=== PATIENT | female | born 1955 | race Caucasian/White ===

== ENCOUNTER 2017-05-27 21:54 | Inpatient (IN) | payer MEDICAID ==
[~2017-05-27] VITALS: Ht 167.6 cm; Wt 63.0 kg
[2017-05-27 22:06] VITALS: BP 109/76
--- NOTE | 2017-05-27 22:06 | NUR ---
PT JAVIER BARTLETT. TAKEN TO BED 11
--- NOTE | 2017-05-27 22:06 | NUR ---
Pt came from care facility for fever and vomiting x1 day. Pt arrived via EMS. Pt has developmental and physical defficit. Pt non-verbal, unable to follow command, calm. Pt has G-tube, and hand contractures. Pt is well kempt at facility. Pt incontinant. VS stable, HOB elevated, ER MD aware, continue to monitor.
[2017-05-27 23:27] LABS: MEAN CORPUSCULAR VOLUME 87 fL (80-94)
[2017-05-27 23:28] LABS: BASOPHILS # (AUTO) 0.2 K/uL (0.00-0.22); BASOPHILS % (AUTO) 1.3 % (0.0-2.0); EOSINOPHILS # (AUTO) 0.1 K/uL (0-0.4); EOSINOPHILS % (AUTO) 0.5 % (0.0-4.0); HEMATOCRIT 37.5 % (36-48); LYMPHOCYTES # (AUTO) 1.9 K/uL (2.5-16.5); LYMPHOCYTES % (AUTO) 15.2 % (20.5-51.1); MEAN CORPUSCULAR HEMOGLOBIN 28 pg (27-31); MEAN CORPUSCULAR HGB CONC 32 g/dL (33-37); NEUTROPHILS # (AUTO) 9.4 K/uL (1.8-7.7); PLATELET COUNT (AUTO) 439 K/uL (140-450); RED BLOOD CELL COUNT(AUTO) 4.28 MIL/uL (4.20-5.40); RED CELL DISTRIBUTION WIDTH 14.1 % (11.6-13.7); WHITE BLOOD COUNT (AUTO) 12.6 K/uL (4.8-10.8)
[2017-05-27 23:41] LABS: ALBUMIN 2.6 g/dL (3.4-5.0); ANION GAP 10.1 (8-16); TOTAL BILIRUBIN 0.3 mg/dL (0.0-1.0)
[2017-05-27 23:49] LABS: CARBON DIOXIDE 41.1 mmol/L (21-32); POTASSIUM 2.2 mmol/L (3.5-5.1)
[2017-05-27] MEDS ORDERED: POTASSIUM CHLORIDE 10 MEQ TABER PO ONE (23:50)
[2017-05-27] MEDS ORDERED: NACL 0.9% 2,000 ML IV ONE (23:50)
--- NOTE | 2017-05-27 23:50 | NUR ---
Spoke to lab, Critical values given. K 2.2, Bicarb 41.1, and Lactic 2.3. Dr Sewell informed. Continue to monitor.
[2017-05-28] MEDS ORDERED: POTASSIUM CHLORIDE 20% 40 MEQ/15 ML UDC GT ONE
--- NOTE | 2017-05-28 01:44 | NUR ---
Straight catheter performed. Unable to insert indwelling catheter at this time. Urine collected and sent to lab.
--- NOTE | 2017-05-28 01:50 | NUR ---
Pt cleaned and placed in new diaper with chucks, hospital gown, and blanket. Personal belongings placed in bag at bedside. Skin assessed. 7x7cm rash above left hip. Duoderm found over coccyx. Skin under duoderm clear, blanchable, and in tact. Duoderm is preventative.
[2017-05-28 01:56] LABS: APPEARANCE,URINE CLOUDY (CLEAR); BILIRUBIN,URINE NEGATIVE (NEGATIVE); BLOOD, URINE 2+ (NEGATIVE); COLOR,URINE YELLOW (YELLOW); LEUKOCYTE ESTERASE ,URINE TRACE (NEGATIVE); NITRITE, URINE NEGATIVE (NEGATIVE); PH,URINE 8.5 (5.0-9.0); UGLUCOSE NEGATIVE (NEGATIVE)
[2017-05-28 02:28] LABS: RBC,URINE 11-20 (MOD) /HPF (0-5); WBC,URINE 20-60 /HPF (0-5)
[2017-05-28] MEDS ORDERED: LEVOFLOXACIN 500 MG/D5W PREMIX 100 ML IV ONE (02:30)
[2017-05-28] MEDS ORDERED: HYDROcodone/APAP 7.5/325 MG 1 TAB GT PRN (02:50)
[2017-05-28] MEDS ORDERED: ONDANSETRON 4 MG/2 ML VIAL IVP PRN (02:50)
[2017-05-28] MEDS ORDERED: ACETAMINOPHEN 325 MG SUPP RC PRN (02:50)
[2017-05-28 03:15] VITALS: BP 146/84
--- NOTE | 2017-05-28 03:17 | NUR ---
Pt left ED to floor, room 0317. Pt escorted via gurjoaquin by Chavez PANG and Wily CANALES.
[2017-05-28] MEDS ORDERED: MONT10TA35 PEG (03:22)
[2017-05-28] MEDS ORDERED: CHLO1TAB42 PEG (03:22)
[2017-05-28] MEDS ORDERED: ROB1 PEG (03:22)
[2017-05-28] MEDS ORDERED: SIME20SU1 PO (03:22)
[2017-05-28] MEDS ORDERED: ZONI100C5 PEG (03:22)
[2017-05-28] MEDS ORDERED: FERR75LI22 PEG (03:22)
[2017-05-28] MEDS ORDERED: PUL.5N INH (03:22)
[2017-05-28] MEDS ORDERED: OMEP20TC PEG (03:22)
[2017-05-28] MEDS ORDERED: LAM200 PEG (03:22)
[2017-05-28] MEDS ORDERED: MIRABULK PEG (03:22)
[2017-05-28] MEDS ORDERED: MULT15LI1 GT (03:22)
[2017-05-28] MEDS ORDERED: FLONAS NS (03:22)
[2017-05-28] MEDS ORDERED: LORA10TA19 PEG (03:22)
[2017-05-28] MEDS ORDERED: [UNRECOGNIZED DRUG - CODE] PEG (03:22)
[2017-05-28] MEDS ORDERED: PRON INH (03:22)
[2017-05-28] MEDS ORDERED: AMLO10TA PO (03:22)
[2017-05-28] MEDS ORDERED: ASCO500T45 PEG (03:22)
[2017-05-28] MEDS ORDERED: METO5SOL19 GT (03:22)
[2017-05-28] MEDS ORDERED: CARB100S PO (03:22)
[2017-05-28] MEDS ORDERED: SYN.05 PO (03:22)
--- NOTE | 2017-05-28 03:30 | NUR ---
Care transfered to Consuelo PANG room 107B. Pt vss.
[2017-05-28 03:45] LABS: CHOL/HDL RATIO 2.9 (1-4.5); FREE T4 (FREE THYROXINE) 0.82 ng/dL (0.76-1.46); MAGNESIUM 2.6 mg/dL (1.8-2.4); PHOSPHORUS 4.4 mg/dL (2.5-4.9); THYROID STIMULATING HORMONE 2.71 uIU/mL (0.34-3.74)
--- NOTE | 2017-05-28 03:45 | NUR ---
RECEIVED PATIENT FROM WHIPPER BEATER. PATIENT NON VERBAL. FLACC 0. IV SITE PATENT AND INTACT. PATIENT IS QUADRIPLEGIC AND UNABLE TO AMBULATE. G TUBE PATENT AND INTACT. NO SIGNS OR SYMPTOMS OF ACUTE DISTRESS NOTED. SAFETY MEASURES ENSURED. CALL LIGHT WITHIN REACH. WILL CONTINUE TO MONITOR.
--- NOTE | 2017-05-28 04:10 | NUR ---
IN TO SEE PATIENT.
[2017-05-28] MEDS: NACL 0.9% 1,000 ML IV SCH ×2 (04:43→12:50)
[2017-05-28] MEDS ORDERED: LEVOTHYROXINE 0.05 MG TAB PO SCH (06:30)
--- NOTE | 2017-05-28 06:35 | NUR ---
GASTRIC RESIDUAL 90ML DARK BROWN WITH POSSIBLE BLOOD. AWARE. GASTRIC OCCULT BLOOD COLLECTED FOR TESTING.
[2017-05-28 07:13] LABS: BASOPHILS # (AUTO) 0.1 K/uL (0.00-0.22); BASOPHILS % (AUTO) 0.8 % (0.0-2.0); EOSINOPHILS # (AUTO) 0.1 K/uL (0-0.4); EOSINOPHILS % (AUTO) 0.7 % (0.0-4.0); HEMATOCRIT 30.4 % (36-48); HEMOGLOBIN 10.3 g/dL (12.0-16.0); LYMPHOCYTES # (AUTO) 2.6 K/uL (2.5-16.5); LYMPHOCYTES % (AUTO) 23.4 % (20.5-51.1); MEAN CORPUSCULAR HEMOGLOBIN 31 pg (27-31); MEAN CORPUSCULAR HGB CONC 34 g/dL (33-37); MEAN CORPUSCULAR VOLUME 90 fL (80-94); MONOCYTES # (AUTO) 0.8 K/uL (0.8-1.0); MONOCYTES % (AUTO) 7.4 % (1.7-9.3); NEUTROPHILS # (AUTO) 7.6 K/uL (1.8-7.7); NEUTROPHILS % (AUTO) 67.7 % (42.2-75.2); PLATELET COUNT (AUTO) 339 K/uL (140-450); RED BLOOD CELL COUNT(AUTO) 3.37 MIL/uL (4.20-5.40); RED CELL DISTRIBUTION WIDTH 14.1 % (11.6-13.7); WHITE BLOOD COUNT (AUTO) 11.1 K/uL (4.8-10.8)
--- NOTE | 2017-05-28 07:27 | NUR ---
ENDORSED PLAN OF CARE TO AM RN. PATIENT IN STABLE CONDITION.
--- NOTE | 2017-05-28 07:30 | NUR ---
RECEIVED PATIENT REPORT AT BEDSIDE FROM NIGHT NURSE, PATIENT IS AWAKE, NONVERBAL, AND HAS INTELLECTUAL DISABILITY. SHE SHOWS NO S/S OF ACUTE DISTRESS ON ROOM AIR. FLACC-0. IV NOTED ON THE LEFT HAND WITH IVF'S INFUSING WELL. ON TELE MONITOR. PATIENT HAS DERMATITIS AROUND HER MOUTH, LOWER BACK, LEFT ELBOW, UNDERNEATH LEFT BREAST AND ERYTHEMA ON THE VAGINA. GT NOTED WITH NO TF. GT WAS CHECKED FOR POSITIVE PLACEMENT, ASPIRATED WITH NO RESIDUAL NOTED. PATIENT IS INCONTINENT OF URINE AND BOWEL. DISCUSSED POC WITH PATIENT HOWEVER SHE IS UNABLE TO VERBALIZE UNDERSTANDING OF CARE. SAFETY AND FALL PRECAUTIONS IN PLACE. BED IN LOW POSITION WITH CALL LIGHT WITHIN REACH.
[2017-05-28 07:38] LABS: MAGNESIUM 2.4 mg/dL (1.8-2.4); PHOSPHORUS 2.1 mg/dL (2.5-4.9)
[2017-05-28 07:53] LABS: ANION GAP 12.3 (8-16); CARBON DIOXIDE 36.3 mmol/L (21-32)
[2017-05-28 08:00] VITALS: BP_SYST 87; BP_SYST 99; BP_DIAS 42; BP_DIAS 60
[2017-05-28 08:41] LABS: CREATININE 0.8 mg/dL (0.6-1.3)
[2017-05-28 08:42] LABS: POTASSIUM 2.6 mmol/L (3.5-5.1)
--- NOTE | 2017-05-28 08:50 | NUR ---
CALLED MAGI RN [phone] IN REGARDS TO RECEIVING CONSENT FOR PATIENT TO GET CT WITH CONTRAST, MAGI STATED TO CALL [facility] AND SPEAK WITH ROSALIE BROOKS [phone].
--- NOTE | 2017-05-28 08:52 | NUR ---
CALLED ROSALIE BROOKS AT [phone] HOWEVER ANSWERING MACHINE STATED SHE WILL BE IN [place] UNTIL MAY 282017 AND WILL BE BACK MAY 29, 2017. GENERAL LINE WAS CALLED [phone] HOWEVER NOT OPEN AT THIS TIME. WILL ATTEMPT AT A LATER TIME.
[2017-05-28] MEDS: amLODIPine 5 MG TAB GT SCH (09:00)
--- NOTE | 2017-05-28 09:10 | NUR ---
PATIENT HAS BEEN SCREENED AND CATEGORIZED MODERATE NUTRITION RISK. PATIENT WILL BE SEEN WITHIN 3-5 DAYS OF ADMISSION. 05/30/17-06/01/[address]
[2017-05-28] MEDS: DOCUSATE 100 MG/10 ML UDC GT SCH ×2 (09:20→21:08)
[2017-05-28] MEDS: FERROUS SULFATE 300 MG/5 ML UDC GT SCH ×2 (09:20→21:08)
[2017-05-28] MEDS: METOCLOPRAMIDE 10 MG/10 ML SYRP UDC GT SCH ×4 (09:22→21:07)
[2017-05-28] MEDS: FAMOTIDINE 20 MG/2 ML VIAL IVP SCH ×2 (09:22→21:11)
[2017-05-28] MEDS: LORATADINE 10 MG TAB PEG SCH (09:23)
[2017-05-28] MEDS: FLUTICASONE NASAL 50 MCG/ACTUATION 16 GM BTL NS SCH ×2 (09:23→21:11)
[2017-05-28] MEDS: LACTOBACILLUS RHAMNOSUS GG 1 EACH CAP PO SCH (09:24)
[2017-05-28] MEDS: SIMETHICONE 40 MG/0.6 ML PO SCH ×2 (09:24→21:00)
[2017-05-28] MEDS: POLYETHYLENE GLYCOL 17 GM/PKT PEG SCH (09:25)
[2017-05-28] MEDS: GLYCOPYRROLATE 1 MG TAB PEG SCH ×2 (09:26→21:08)
[2017-05-28] MEDS: ASCORBIC ACID 500 MG TAB PEG SCH (09:26)
[2017-05-28] MEDS: CALCIUM CARBONATE 500 MG TAB.CHEW PEG SCH ×3 (09:26→17:55)
[2017-05-28] MEDS: HYDRAGUARD CREAM TP SCH (09:27)
[2017-05-28] MEDS: Z-GUARD PASTE TP SCH (09:30)
--- NOTE | 2017-05-28 09:50 | NUR ---
PATIENT HOB IS ELEVATED. GT WAS ASPIRATED AND NO RESIDUAL NOTED, FLUSHED WITH 20 CC OF STERILE WATER, PATIENT WAS GIVEN SCHEDULED MEDICATIONS, MEDICATIONS WERE CRUSHED INDIVIDUALLY AND GIVEN WITH 10 CC OF STERILE WATER, ALL MEDICATIONS EXCEPT FOR AMLODIPINE 10 MG PO WAS NOT GIVEN D/T DECREASED BP. APPLIED HYDRAGAURD AND ZGAURD ORDERED. PATIENT IS SITTING UPRIGHT AT 45 DEGREES. PATIENT'S NEEDS MET AT THIS TIME. BED IN LOW POSITION, BED ALARM ACTIVATED, AND CALL LIGHT WITHIN REACH.
--- NOTE | 2017-05-28 10:22 | NUR ---
SPOKE WITH AG FLORES AT [phone] IN REGARDS TO CONSENT FORM FOR CT WITH CONTRAST OF THE ABD AND PELVIS. SHE STATED, "I WILL LET THE INSURANCE INSTRUCTOR KNOW, YOU WILL HERE A CALL BACK LATER TODAY BY BARBARA OR FROM CLINICAL SERVICES. THEY WILL NOTIFY WHEN THE CONSENT FROM HAS BEEN SENT."
[2017-05-28] MEDS ORDERED: POTASSIUM CHLORIDE 40 MEQ, LIDOCAINE 1% 25 MG in NACL 0.9% 250 ML IV SCH (10:30)
--- NOTE | 2017-05-28 11:00 | NUR ---
PER RADIOLOGY ONLY ABLE TO DO CT WITH IV CONTRAST WITH 20 G IV. ATTEMPTED TWICE UNSUCCESSFULLY, WILL ASK ADDY PANG.
--- NOTE | 2017-05-28 11:30 | NUR ---
ADDY PANG SUCCESSFULLY ATTEMPTED IV ON THE RIGHT UPPER ARM 20 G SL FOR PROCEDURE. JORGE NOTIFIED.
--- NOTE | 2017-05-28 12:00 | NUR ---
PER VONDA POLANCO, PATIENT DOES NOT NEED CONSENT FORM SIGNED DT TO PATIENT HAVING NO CONSERVATOR OR GUARDIAN, DR TINAJERO IS AWARE. DR TINAJERO SIGNED CONSENT FORM, JORGE FROM RADIOLOGY IS AWARE.
--- NOTE | 2017-05-28 12:35 | NUR ---
PATIENT BACK FROM CT, PER JORGE PATIENT IV INFILTRATED ONCE CONTRAST WENT IN. PATIENT UPPER RIGHT ARM IS PINK AND SWOLLEN WITH WARM COMPRESS. DR TINAJERO IS AWARE, RADIOLOGY WAS ONLY ABLE TO DO CT WITHOUT CONTRAST.
--- NOTE | 2017-05-28 12:35 | NUR ---
1040 MET WITH CALEB ACOSTA SPINDLE FRAME CARVER OF [employer] [facility] [facility] AND WITH BLANCA OLIVER THE TURNER MACHINE OF THE FACILITY. PER CALEB PT'S [facility] RODEO PERFORMER IS ROSALIE PUGA BUT AT THIS TIME MS PUGA IS ON [address] [address] AND HER PHONE IS [phone] AND AT THIS TIME BARBARA AT [phone] IS COVERING FOR HER. PER CALEB PT HAS NO KNOWN RELATIVES AND IS NOT CONSERVED. PT HAS BEEN AT THEIR FACILITY FOR MANY YEARS AND WELL KNOWN TO THE STAFF. PT IS AT HER BASELINE MENTALLY AND FUNCTIONALLY. [facility] OVERSEES PTS CARE BUT DO NOT HAVE CONSERVATORSHIP, THEREFORE, PT'S CARE NEEDS SHOULD BE ADMINISTERED THE MEDICAL TEAM DETERMINE AND DOCUMENT NECESSARY.
--- NOTE | 2017-05-28 12:40 | NUR ---
RIGHT UPPER ARM IV DISCONTINUED WITH CANNULA INTACT.
[2017-05-28 12:50] VITALS: BP 145/50
--- NOTE | 2017-05-28 13:50 | NUR ---
PATIENT HOB IS ELEVATED. GT WAS ASPIRATED AND NO RESIDUAL NOTED, FLUSHED WITH 20 CC OF STERILE WATER, PATIENT WAS GIVEN SCHEDULED MEDICATIONS, MEDICATIONS WERE CRUSHED INDIVIDUALLY AND GIVEN WITH 10 CC OF STERILE WATER, PATIENT IS SITTING UPRIGHT AT 45 DEGREES. PATIENT'S NEEDS MET AT THIS TIME. BED IN LOW POSITION, BED ALARM ACTIVATED, AND CALL LIGHT WITHIN REACH.
--- NOTE | 2017-05-28 15:30 | NUR ---
PATIENT'S IV WAS FOUND DISCONTINUED WITH CANNULA INTACT. NEW IV SITE ATTEMPTED ON THE LEFT HAND 22 G WITH IVF'S INFUSING WELL. PATIENT TOLERATED ACTIVITY WELL. BED IN LOW POSITION WITH CALL LIGHT WITHIN REACH.
[2017-05-28 16:00] VITALS: BP 108/78
--- NOTE | 2017-05-28 19:30 | NUR ---
GAVE PATIENT REPORT TO NIGHT NURSE. PATIENT ENDORSED IN STABLE CONDITION
--- NOTE | 2017-05-28 19:31 | NUR ---
RECEIVED HANDOFF REPORT FROM AM RN. PATIENT RESTING IN BED. PATIENT HAS SPONTANEOUS EYE OPENING AND WITHDRAWS TO PAIN, PATIENT IS NON VERBAL. FLACC 0. IV SITE PATENT AND INTACT. G TUBE PATENT AND INTACT. PATIENT HAS REDNESS ON LEFT SIDE, LEFT ELBOW, LEFT SIDE OF FACE, UNDER LEFT BREAST, AND IN THE VAGINAL AREA. NO SIGNS OR SYMPTOMS OF ACUTE DISTRESS NOTED. SAFETY MEASURES ENSURED. CALL LIGHT WITHIN REACH. WILL CONTINUE TO MONITOR.
[2017-05-28 20:00] VITALS: BP 124/73
[2017-05-28] MEDS: MONTELUKAST SODIUM 10 MG TAB PEG SCH (21:09)
[2017-05-28] MEDS: BUDESONIDE 0.5 MG/2 ML NEBU INH SCH (23:35)
[2017-05-29] VITALS: BP 121/69
[2017-05-29] MEDS: NACL 0.9% 1,000 ML IV SCH ×2 (00:37→09:39)
[2017-05-29] MEDS: LEVOFLOXACIN 750 MG/D5W PREMIX 150 ML IV SCH (03:50)
[2017-05-29 04:00] VITALS: BP 107/58
[2017-05-29] MEDS: LEVOTHYROXINE 0.025 MG TAB PO SCH (05:56)
[2017-05-29] MEDS: BUDESONIDE 0.5 MG/2 ML NEBU INH SCH ×2 (07:01→18:41)
--- NOTE | 2017-05-29 07:15 | NUR ---
ENDORSED PLAN OF CARE TO AM RN. PATIENT IN STABLE CONDITION.
[2017-05-29 07:21] LABS: CARBON DIOXIDE 29.7 mmol/L (21-32); CREATININE 0.6 mg/dL (0.6-1.3)
[2017-05-29 07:23] LABS: BASOPHILS # (AUTO) 0.1 K/uL (0.00-0.22); BASOPHILS % (AUTO) 1.1 % (0.0-2.0); EOSINOPHILS # (AUTO) 0.1 K/uL (0-0.4); EOSINOPHILS % (AUTO) 2.1 % (0.0-4.0); HEMATOCRIT 26.9 % (36-48); HEMOGLOBIN 8.6 g/dL (12.0-16.0); LYMPHOCYTES # (AUTO) 2.1 K/uL (2.5-16.5); LYMPHOCYTES % (AUTO) 33.8 % (20.5-51.1); MEAN CORPUSCULAR HEMOGLOBIN 29 pg (27-31); MEAN CORPUSCULAR HGB CONC 32 g/dL (33-37); MEAN CORPUSCULAR VOLUME 91 fL (80-94); MONOCYTES # (AUTO) 0.6 K/uL (0.8-1.0); MONOCYTES % (AUTO) 9.3 % (1.7-9.3); NEUTROPHILS # (AUTO) 3.3 K/uL (1.8-7.7); NEUTROPHILS % (AUTO) 53.7 % (42.2-75.2); PLATELET COUNT (AUTO) 256 K/uL (140-450); RED BLOOD CELL COUNT(AUTO) 2.95 MIL/uL (4.20-5.40); WHITE BLOOD COUNT (AUTO) 6.2 K/uL (4.8-10.8)
[2017-05-29 07:30] LABS: AMYLASE 18 U/L (25-115); LIPASE 62 U/L (73-393)
--- NOTE | 2017-05-29 07:30 | NUR ---
RECEIVED PT REPORT FROM CHIEF RESOURCE OFFICER NURSE. PT HAS HX OF CEREBRAL PALSY, HAS SPONTANEOUS EYE OPENING, NON VERBAL. BLE WEAKNESS, BUE SPASTIC. FLACC 0. IV CATH NOTED TO THE LEFT WRIST, PATENT, INTACT AND INFUSING WELL. G TUBE PATENT AND DRY. PATIENT HAS REDNESS ON LEFT TRUNK, LEFT ELBOW, LEFT SIDE OF FACE, UNDER LEFT BREAST, AND IN THE VAGINAL AREA. NO SIGNS OR SYMPTOMS OF ACUTE DISTRESS NOTED. SAFETY MEASURES ENSURED. CALL LIGHT WITHIN REACH. WILL CONTINUE TO MONITOR.
[2017-05-29 07:32] LABS: PHOSPHORUS 1.9 mg/dL (2.5-4.9); POTASSIUM 2.7 mmol/L (3.5-5.1)
--- NOTE | 2017-05-29 07:45 | NUR ---
NOTIFIED ABOUT K 2.7, ORDERS WILL BE PUT IN BY .
[2017-05-29 08:00] VITALS: BP 104/64
[2017-05-29] MEDS ORDERED: TAMSULOSIN 0.4 MG CAP PO SCH (08:30)
[2017-05-29] MEDS ORDERED: POTASSIUM CHLORIDE 40 MEQ, LIDOCAINE 1% 25 MG in NACL 0.9% 250 ML IV SCH (08:30)
--- NOTE | 2017-05-29 08:30 | NUR ---
WOUND CARE EVALUATION NOTE: REASON FOR EVALUATION: BODY RASHES AND REDNESS TO PERINEAL REAS COMPLETE SKIN ASSESSMENT DONE ON THIS 61Y/O FEMALE PATIENT FROM [facility] TO [facility], WITH INITIAL DIAGNOSIS OF VOMITING X 1 DAY. PAST MEDICAL HISTORY INCLUDE SPASTIC QUADRIPLEGIA AND SEIZURE DISORDER. ALL ABOVE INFORMATION OBTAINED FROM THE ADMISSION H&P. LABS ARE WBC 11.1, H/H 10.3/30.4, GLUCOSE 116 AND ALBUMIN 2.6. SKIN WARM TO TOUCH , SKIN TURGOR GOOD. CAPILLARY REFILLED <3 SEC. TOENAILS ARE SHORT AND THICKENED, NO HAIR GROWTH, BILATERAL DORSAL PEDAL PULSES PRESENT. PT. IS INCONTINENT BOEL AND BLADDER. INITIAL PLAN OF CARE DISCUSSED WITH PRIMARY RN. INTEGUMENTARY: LEFT LOWER PART OF FACE, UPPER EXTRMITIES AND TRUNK WITH MULTIPLE RASHES GT [place]-STOMA SKIN DRY AND INTACT BILATERAL LOWER EXTREMITIES -DRYNESS SACRALCOCCYX AND BUTTOCKS MOISTURE ASSOCIATE DERMATITIS, REDNESS WITH SKIN INTACT LEFT AND RIGHT HEELS- BLANCHABLE REDNESS RECOMMENDATIONS: -APPLY ANTIFUNGAL CREAM MULTIPLE RASHES ON FACE, UPPER EXTREMITIES AND TRUNK -CLEANSE SACRALCOCCYX AND BUTTOCKS MAD WITH SOAP AND WATER, PAR DRY, APPLY HYDRAGUARD BID WC AND PRN IF SOILING -TURN AND REPOSITION PATIENT Q 2H -ASSESS AND MONITOR SKIN CONDITION DURING POSITION CHANGE, PLEASE PAY ATTENTION HEELS -OFFLOAD BILATERAL HEELS BY PLACING PILLOWS UNDER CALVES AT ALL TIMES, UNLESS OTHERWISE CONTRAINDICATED -PRESSURE REDISTRIBUTION SURFACE THERAPY -KEEP SKIN CLEAN AND DRY AT ALL TIMES. MAY APPLY BODY LOTION TO DRYNESS AREA. RECOMMENDATIONS DISCUSSED WITH PRIMARY RN WILL FOLLOW UP PATIENT Q7- 10 DAYS AND PRN. PLEASE CONTACT WOUND CARE NURSE FOR ANY CONCERNS, QUESTIONS AND CHANGES IN SKIN CONDITION.
[2017-05-29] MEDS: DOCUSATE 100 MG/10 ML UDC GT SCH ×2 (08:49→20:59)
[2017-05-29] MEDS: FERROUS SULFATE 300 MG/5 ML UDC GT SCH (08:49)
[2017-05-29] MEDS: ASCORBIC ACID 500 MG TAB PEG SCH (08:55)
[2017-05-29] MEDS: METOCLOPRAMIDE 10 MG/10 ML SYRP UDC GT SCH ×3 (08:55→17:36)
[2017-05-29] MEDS: GLYCOPYRROLATE 1 MG TAB PEG SCH (08:56)
[2017-05-29] MEDS: LACTOBACILLUS RHAMNOSUS GG 1 EACH CAP PO SCH (08:56)
[2017-05-29] MEDS: TAMSULOSIN 0.4 MG CAP PO SCH (08:56)
[2017-05-29] MEDS: LORATADINE 10 MG TAB PEG SCH (08:56)
[2017-05-29] MEDS: CALCIUM CARBONATE 500 MG TAB.CHEW PEG SCH ×3 (08:57→17:36)
[2017-05-29] MEDS: POLYETHYLENE GLYCOL 17 GM/PKT PEG SCH (08:57)
[2017-05-29] MEDS: FAMOTIDINE 20 MG/2 ML VIAL IVP SCH (08:57)
[2017-05-29] MEDS: amLODIPine 5 MG TAB GT SCH (08:58)
--- NOTE | 2017-05-29 09:01 | NUR ---
PATIENT HAS BEEN RESCREENED AND RECATEGORIZED HIGH NUTRITION RISK. PATIENT WILL BE SEEN WITHIN 1-2 DAYS OF ADMISSION. 05/28/17-05/29/[address]
--- NOTE | 2017-05-29 09:20 | NUR ---
G TUBE ASPIRATED, 10 ML RESIDUAL. MEDS GIVEN VIA G TUBE. PT TOLERATED WELL.
[2017-05-29] MEDS: FLUTICASONE NASAL 50 MCG/ACTUATION 16 GM BTL NS SCH ×2 (09:38→21:00)
[2017-05-29] MEDS: SIMETHICONE 40 MG/0.6 ML PO SCH ×2 (09:38→21:02)
[2017-05-29] MEDS: Z-GUARD PASTE TP SCH (09:39)
[2017-05-29] MEDS: HYDRAGUARD CREAM TP SCH (09:39)
--- NOTE | 2017-05-29 10:50 | NUR ---
PT WAS CLEANED, CHUX CHANGED, Z GUARD APPLIED TO SACRAL AREA. HADRAGUARD APPLIED TO RASHES ON LEFT FACE, LEFT TRUNK AND BOTH ELBOWS. NEW G-TUBE DRESSING APPLIED.
[2017-05-29 12:00] VITALS: BP 111/71
--- NOTE | 2017-05-29 14:50 | NUR ---
PT WAS CLEANED AND CHANGED. Z GUARD APPLIED TO LEFT SACRAL AND HYDRAGUARD APPLIED TO FACE, TRUNK AND ELBOWS. PT WAS REPOSITIONED TO LEFT LATERAL.
--- NOTE | 2017-05-29 15:04 | NUR ---
05/29/2017 RD INITIAL ASSESSMENT COMPLETED PLEASE REFER TO NUTRITION ASSESSMENT UNDER CARE ACTIVITY FOR ESTIMATED NUTRITIONAL NEEDS. CONTINUE NPO STATUS UNTIL MEDICALLY APPROPRIATE TO RESTART TUBE FEEDINGS. PER MD PROGRESS NOTE, PT WILL RECEIVE FIBERSOURCE @ 50 ML/HR ONCE DIET RESUMED. THIS WILL PROVIDE 1440 KCALS AND 65 GM PRO/DAY TO MEET 91% EST KCAL AND 82% EST PRO NEEDS/DAY. PT WITH INCREASED ENERGY AND PROTEIN NEEDSDUE TO NEED FOR WOUND HEALING, MAY BENEFIT FROM INCREASED TUBE FEEDING RATE. PLEASE CONSIDER: FIBERSOURCE HN @ 60 ML/HR THIS WILL PROVIDE 1728 KCALS AND 78 GM PRO/DAY TO MEET 100% EST KCAL AND 99% EST PRO NEEDS/DAY RD TO FOLLOW-UP IN 2-3 DAYS PATIENT IS HIGH RISK. KITTY WHALEN RD
[2017-05-29] MEDS: CHLORHEXADINE GLUC 2% CLOTH TP SCH (15:30)
[2017-05-29] MEDS: MUPIROCIN 2% OINT 22 GM TUBE TP SCH (15:39)
[2017-05-29 16:00] VITALS: BP 104/57
--- NOTE | 2017-05-29 18:00 | NUR ---
PT HAS BEEN SEEN BY DR GREENE. DR GREENE ORDERED EGD.
[2017-05-29] MEDS ORDERED: MAGNESIUM CITRATE 300 ML BTL PO SCH (18:40)
[2017-05-29] MEDS: POTASSIUM CHL 20 MEQ/D5-1/2NS 1,000 ML IV SCH (18:40)
--- NOTE | 2017-05-29 19:30 | NUR ---
ENDORSED PT TO PRINCIPAL ASSOCIATE NURSE. PT IS IN STABLE CONDITION.
--- NOTE | 2017-05-29 19:31 | NUR ---
RECEIVED REPORT FROM DAY SHIFT NURSE. PT IN BED, AWAKE, APHASIC. NO S/S OF PAIN. IV TO LEFT WRIST #22g, PATENT AND INTACT. G-TUBE IN PLACE, DRESSING CLEAN DRY AND INTACT. SAFETY, SEIZURE AND ASPIRATION PRECAUTION IN PLACE. CALL LIGHT WITHIN REACH. WILL CONTINUE TO MONITOR.
[2017-05-29 20:00] VITALS: BP 100/63
--- NOTE | 2017-05-29 20:10 | NUR ---
SPOKE TO CALEB ACOSTA OF [facility], SHE SAID SHE WILL CALL SUPERCHARGER REPAIR SUPERVISOR ROSALIE BROOKS OF [facility] TOMORROW MORNING FOR THE CONSENT FOR PT'S PROCEDURE.
--- NOTE | 2017-05-29 20:46 | NUR ---
SPOKE WITH POLY LAM FROM [facility], ON THE PHONE, REQUESTING A COPY OF MEDICAL RECORDS OF PT'S PSEUDOCYST OF PANCREAS. PER CAROLE, SHE WILL CHECK PT'S MEDI RECORDS TOMORROW MORNING AND SHE WILL CALL US.
[2017-05-29] MEDS: PANTOPRAZOLE 40 MG INJ VIAL IVP SCH (20:59)
[2017-05-29] MEDS: MONTELUKAST SODIUM 10 MG TAB PEG SCH (21:00)
--- NOTE | 2017-05-29 21:00 | NUR ---
G-TUBE RESIDUAL 15 ML. DUE MEDS ADMINISTERED VIA G-TUBE. PT TOLERATED WELL. SAFETY AND ASPIRATION PRECAUTION IN PLACE.
[2017-05-29] MEDS: TRIAMCINOLONE 0.025% CRM 15 GM TUBE TP SCH (21:03)
--- NOTE | 2017-05-29 23:05 | NUR ---
PT TURNED AND REPOSITIONED EVERY 2 HRS.. NO S/S OF DISTRESS. PT KEPT DRY, CLEAN AND COMFORTABLE.
[2017-05-30] VITALS: BP 110/72
--- NOTE | 2017-05-30 01:58 | NUR ---
PT HAS AN ORDER TO STRAIN URINE FOR CALCULUS. DR. SAUNDERS MADE AWARE THAT PT IS INCONTINENT AND APHASIC. NO NEW ORDER AT THIS TIME.
[2017-05-30] MEDS: LEVOFLOXACIN 750 MG/D5W PREMIX 150 ML IV SCH (03:26)
[2017-05-30 04:00] VITALS: BP 102/58
--- NOTE | 2017-05-30 04:17 | NUR ---
PT SLEEPING BUT AROUSABLE. NO S/S OF PAIN OR DISCOMFORT. CALL LIGHT WITHIN REACH.
[2017-05-30] MEDS: POTASSIUM CHL 20 MEQ/D5-1/2NS 1,000 ML IV SCH ×2 (05:28→14:40)
--- NOTE | 2017-05-30 05:30 | NUR ---
PT VOMITED X1, LIGHT BROWN LIQUID. ZOFRAN 4 MG IVP GIVEN. PT KEPT CLEAN, DRY AND COMFORTABLE. ASPIRATION, SEIZURE AND SAFETY PRECAUTION IN PLACE.
[2017-05-30] MEDS: LEVOTHYROXINE 0.025 MG TAB PO SCH (06:02)
--- NOTE | 2017-05-30 06:42 | NUR ---
PT SLEEPING. NO S/S OF DISTRESS. NO VOMITING NOTED.
[2017-05-30] MEDS: BUDESONIDE 0.5 MG/2 ML NEBU INH SCH (07:00)
[2017-05-30 07:08] LABS: BASOPHILS # (AUTO) 0.1 K/uL (0.00-0.22); BASOPHILS % (AUTO) 1.5 % (0.0-2.0); EOSINOPHILS # (AUTO) 0.1 K/uL (0-0.4); EOSINOPHILS % (AUTO) 1.8 % (0.0-4.0); HEMATOCRIT 30.8 % (36-48); LYMPHOCYTES # (AUTO) 2.1 K/uL (2.5-16.5); MEAN CORPUSCULAR HEMOGLOBIN 30 pg (27-31); MEAN CORPUSCULAR HGB CONC 33 g/dL (33-37); MEAN CORPUSCULAR VOLUME 91 fL (80-94); MONOCYTES # (AUTO) 0.5 K/uL (0.8-1.0); MONOCYTES % (AUTO) 8.8 % (1.7-9.3); NEUTROPHILS # (AUTO) 2.9 K/uL (1.8-7.7); NEUTROPHILS % (AUTO) 50.9 % (42.2-75.2); PLATELET COUNT (AUTO) 291 K/uL (140-450); RED CELL DISTRIBUTION WIDTH 14.2 % (11.6-13.7); WHITE BLOOD COUNT (AUTO) 5.7 K/uL (4.8-10.8)
[2017-05-30 07:09] LABS: ANION GAP 11.3 (8-16); CARBON DIOXIDE 28.1 mmol/L (21-32); CREATININE 0.5 mg/dL (0.6-1.3); MAGNESIUM 1.9 mg/dL (1.8-2.4); PHOSPHORUS 1.6 mg/dL (2.5-4.9); POTASSIUM 3.4 mmol/L (3.5-5.1)
--- NOTE | 2017-05-30 07:25 | NUR ---
ENDORSED PT TO DAY SHIFT NURSE. PT IN STABLE CONDITION.
--- NOTE | 2017-05-30 07:26 | NUR ---
RECEIVED REPORT FROM BISCUIT FACTORY WORKER NURSE. PATIENT LYING IN BED COMFORTABLY. NO DISTRESS NOTED. FLACC 0. AA, APHASIC, NON-VERBAL, CALM, COOPERATIVE, SKIN COLOR APPROPRIATE TO ETHNICITY, WARM TO TOUCH. HAS REDNESS ON SKIN ON PERINEAL AND COCCYX AREA, HOWEVER, SKIN IS INTACT. GTUBE SITE IS INTACT, PATENT, NO GTUBE FEEDING AT THIS TIME. IV SITE INTACT, PATENT, AND INFUSING PER ORDERS. PATIENT IS INCONTINENT, UNABLE TO STRAIN URINE, MD AWARE ALREADY. LUNGS CTA ON ALL LOBES. ABDOMEN SOFT, NON-DISTENDED. REVIEWED PLAN OF CARE WITH PATIENT. UNABLE TO COMPREHEND, REINFORCEMENT NEEDED. SAFETY MEASURES IN PLACE, CALL LIGHT WITHIN REACH. WILL CONTINUE TO MONITOR.
[2017-05-30 08:00] VITALS: BP 132/70
[2017-05-30] MEDS ORDERED: POTASSIUM CHLORIDE 20% 40 MEQ/15 ML UDC GT SCH (09:00)
[2017-05-30] MEDS: amLODIPine 5 MG TAB GT SCH (10:22)
[2017-05-30] MEDS: SENNA 8.6 MG TAB PO SCH ×2 (10:22→14:04)
[2017-05-30] MEDS: PANTOPRAZOLE 40 MG INJ VIAL IVP SCH (10:22)
[2017-05-30] MEDS: DOCUSATE 100 MG/10 ML UDC GT SCH (10:23)
[2017-05-30] MEDS: LACTOBACILLUS RHAMNOSUS GG 1 EACH CAP PO SCH (10:23)
[2017-05-30] MEDS: TAMSULOSIN 0.4 MG CAP PO SCH (10:23)
[2017-05-30] MEDS: ASCORBIC ACID 500 MG TAB PEG SCH (10:23)
[2017-05-30] MEDS: POLYETHYLENE GLYCOL 17 GM/PKT PEG SCH (10:23)
[2017-05-30] MEDS: SIMETHICONE 40 MG/0.6 ML PO SCH (10:24)
[2017-05-30] MEDS: TRIAMCINOLONE 0.025% CRM 15 GM TUBE TP SCH (10:25)
[2017-05-30] MEDS: FLUTICASONE NASAL 50 MCG/ACTUATION 16 GM BTL NS SCH (10:25)
[2017-05-30] MEDS: Z-GUARD PASTE TP SCH (10:26)
[2017-05-30] MEDS: HYDRAGUARD CREAM TP SCH (10:26)
--- NOTE | 2017-05-30 10:50 | NUR ---
PATIENT LYING IN BED WATCHING TV. NO DISTRESS NOTED. FLACC 0. HAD A SMALL VOMIT X 1 EPISODE EARLIER TODAY PER CHEMICALS FERMENTATION OPERATOR RN REPORTS. NO VOMITING SINCE THEN. SCHEDULED MEDICATIONS DUE GIVEN. PATIENT TOLERATED WELL. ASSISTED RN LIAISON IN CLEANING AND REPOSITIONING PATIENT. SAFETY MEASURES IN PLACE, CALL LIGHT WITHIN REACH. WILL CONTINUE TO MONITOR.
[2017-05-30 12:00] VITALS: BP 136/74
--- NOTE | 2017-05-30 12:30 | NUR ---
PATIENT HAD A SMALL VOMIT X 1 EPISODE, BROWNISH LIGHT COLOR NOTED. PERFORMED MOUTH CARE. SAFETY MEASURES IN PLACE, CALL LIGHT WITHIN REACH. WILL CONTINUE TO MONITOR.
--- NOTE | 2017-05-30 13:36 | NUR ---
COLLIN NOTE RECEIVED ORDER TO TRANSFER TO [facility]. SPOKE WITH [facility] BED CONTROL ALF COURTNEY # [phone] AND SHE ASKED TO HAVE FACESHEET FAXED. FAXED FACESHEET TO [facility] FAX# [phone]. Addendum: 05/30/17 at 1517 by Aurora Anderson CM I GAVE HER THE NUMBER TO NURSING FLOOR WHERE PATIENT IS IF A BED BECOMES AVAILABLE AT A LATER TIME. DR. KANU GRADY.
[2017-05-30] MEDS: MUPIROCIN 2% OINT 22 GM TUBE TP SCH (14:04)
[2017-05-30] MEDS: CHLORHEXADINE GLUC 2% CLOTH TP SCH (14:04)
--- NOTE | 2017-05-30 14:12 | NUR ---
PATIENT SITTING IN BED WATCHING TV. NO DISTRESS NOTED. FLACC 0. SCHEDULED MEDICATIONS DUE GIVEN. PATIENT TOLERATED WELL. SAFETY MEASURES IN PLACE, CALL LIGHT WITHIN REACH. WILL CONTINUE TO MONITOR.
[2017-05-30] MEDS ORDERED: ZGUARD TP (15:42)
[2017-05-30] MEDS ORDERED: BACTO TP (15:42)
[2017-05-30] MEDS ORDERED: COL100L GT (15:42)
[2017-05-30] MEDS ORDERED: Hydraguard TP (15:42)
[2017-05-30] MEDS ORDERED: CHLO118S2 TP (15:42)
[2017-05-30] MEDS ORDERED: ROC1PM IV (15:42)
[2017-05-30] MEDS ORDERED: KEN.025C TP (15:42)
[2017-05-30] MEDS ORDERED: LACT10CA PO (15:42)
[2017-05-30] MEDS ORDERED: TAMS0.4C96 GT (15:42)
[2017-05-30 16:00] VITALS: BP 119/66
--- NOTE | 2017-05-30 16:00 | NUR ---
PATIENT SITTING IN BED WATCHING TV COMFORTABLY. NO DISTRESS NOTED. FLACC 0. PATIENT GOING TO BE TRANSFERRED TO [facility] TODAY WITH DR. GARRIDO ACCEPTING MD. NOTIFIED PATIENT, UNABLE TO COMPREHEND. ASSISTED READING EFFICIENCY COURSE DIRECTOR IN CLEANING AND REPOSITIONING PATIENT AND PREPARING HER FOR TRANSFER. [facility] TO ARRIVE AT 1730 FOR MAILING SPECIALIST TIME. SAFETY MEASURES IN PLACE, CALL LIGHT WITHIN REACH. WILL CONTINUE TO MONITOR.
--- NOTE | 2017-05-30 17:30 | NUR ---
[facility] ON UNIT READY TO TAKE PATIENT TO [facility]. IVF DISCONNECTED WITH IV SITE REMAINING FOR OTHER HOSPITAL. DISCHARGE INSTRUCTIONS/PAPERWORK PROVIDED TO [facility]. COPY OF CHART WITH CD IMAGES GIVEN TO [facility] WELL. ALL PATIENT BELONGINGS TAKEN TO [facility]. REPORT GIVEN TO [facility]. CALLED [facility] AND GAVE REPORT ABOUT PATIENT TO POLY HERNANDEZ. ANSWERED ALL OF DAVID'S QUESTIONS REGARDING PATIENT. NOTIFIED DAVID THAT [facility] WAS ON THE WAY TO THE HOSPITAL. DAVID VERBALIZED COMPLETE UNDERSTANDING AND IS AWAITING FOR PATIENT TO ARRIVE. CALLED CALEB ACOSTA TWICE TO NOTIFY HER THAT PATIENT WAS BEING TRANSFERRED TO [facility]. CALEB DID NOT PICKUP AND UNABLE TO LEAVE MESSAGE DUE TO VOICE MSG BOX FULL.
--- NOTE | 2017-05-30 17:31 | NUR ---
PATIENT TRANSFERRED TO [facility] AT THIS TIME VIA [facility] IN STABLE CONDITION.
== END 2017-05-30 17:30 | disposition short-term general hospital (02) | DRG 720 ==
LOC: MED 21:54 → MTU 05-28 02:56
PROVIDERS: ADMIT Family Medicine Sports Medicine; ATTEND Family Medicine Sports Medicine
DX: A41.51 Sepsis due to Escherichia coli [E. coli] (principal); N17.0 Acute kidney failure with tubular necrosis; E43 Unspecified severe protein-calorie malnutrition; G82.50 Quadriplegia, unspecified; G93.41 Metabolic encephalopathy; K29.71 Gastritis, unspecified, with bleeding; K29.81 Duodenitis with bleeding; L89.151 Pressure ulcer of sacral region, stage 1; Z68.22 Body mass index [BMI] 22.0-22.9, adult; N39.0 Urinary tract infection, site not specified; R65.20 Severe sepsis without septic shock; E87.6 Hypokalemia; K13.0 Diseases of lips; G40.909 Epilepsy, unspecified, not intractable, without status epilepticus; F79 Unspecified intellectual disabilities; E83.39 Other disorders of phosphorus metabolism; N20.0 Calculus of kidney; J30.9 Allergic rhinitis, unspecified; K59.00 Constipation, unspecified; Z93.1 Gastrostomy status; Z22.322 Carrier or suspected carrier of Methicillin resistant Staphylococcus aureus
CPT/HCPCS: 36415; 71045; 80048; 80053; 81001; 82150; 82271; 82550; 83036; 83605; 83690; 83735; 83880; 84100; 84439; 84443; 84484; 85025; 85610; 85730; 87040; 87081; 87086; 87186; 87804; 93005; 94640; 96360; 99285; C1758; C9113; J0696; J1956; J2001; J2405; J3480; J3490; J7030; J7060; J7626; J8597; Q9967

== ENCOUNTER 2018-01-07 06:05 | Inpatient (IN) | payer MEDICAID ==
[~2018-01-07] VITALS: Ht 152.4 cm; Wt 55.3 kg
[~2018-01-07 06:05] MED LIST: AMLO10TA PO; ASCO500T45 PEG; BACTO TP; CARB100S PO; CHLO118S2 TP; CHLO1TAB42 PEG; COL100L GT; FERR75LI22 PEG; FLONAS NS; Hydraguard TP; KEN.025C TP; LACT10CA PO; LAM200 PEG; LORA10TA19 PEG; METO5SOL19 GT; MIRABULK PEG; MONT10TA35 PEG; MULT15LI1 GT; OMEP20TC PEG; PRON INH; PUL.5N INH; ROB1 PEG; ROC1PM IV; SIME20SU1 PO; SYN.05 PO; TAMS0.4C96 GT; ZGUARD TP; ZONI100C5 PEG; [UNRECOGNIZED DRUG - CODE] PEG
[2018-01-07] MEDS ORDERED: FAMOTIDINE 20 MG/2 ML VIAL IVP ONE (06:15)
[2018-01-07] MEDS ORDERED: NACL 0.9% 1,000 ML IV ONE (06:15)
[2018-01-07] MEDS ORDERED: ONDANSETRON 4 MG/2 ML VIAL IVP ONE (06:15)
[2018-01-07 06:21] VITALS: BP 161/96
[2018-01-07 08:09] LABS: BASOPHILS % (AUTO) 0.4 % (0.0-2.0); EOSINOPHILS # (AUTO) 0.1 K/uL (0-0.4); EOSINOPHILS % (AUTO) 1.1 % (0.0-4.0); HEMATOCRIT 39.6 % (36-48); HEMOGLOBIN 12.8 g/dL (12.0-16.0); LYMPHOCYTES # (AUTO) 1.3 K/uL (2.5-16.5); LYMPHOCYTES % (AUTO) 19.6 % (20.5-51.1); MEAN CORPUSCULAR HEMOGLOBIN 28 pg (27-31); MEAN CORPUSCULAR HGB CONC 32 g/dL (33-37); MEAN CORPUSCULAR VOLUME 86.1 fL (80-94); MONOCYTES # (AUTO) 0.4 K/uL (0.8-1.0); MONOCYTES % (AUTO) 5.8 % (1.7-9.3); NEUTROPHILS # (AUTO) 4.9 K/uL (1.8-7.7); NEUTROPHILS % (AUTO) 73.1 % (42.2-75.2); PLATELET COUNT (AUTO) 209 K/uL (140-450); RED CELL DISTRIBUTION WIDTH 16.3 % (11.6-13.7); WHITE BLOOD COUNT (AUTO) 6.7 K/uL (4.8-10.8)
[2018-01-07 08:39] LABS: ANION GAP 12.7 (8-16); CARBON DIOXIDE 27.6 mmol/L (21-32); CREATININE 0.7 mg/dL (0.6-1.3); POTASSIUM 3.3 mmol/L (3.5-5.1)
[2018-01-07 08:46] LABS: PROTHROMBIN TIME 9.1 secs (10.8-13.4)
[2018-01-07 08:50] LABS: ALBUMIN 3.5 g/dL (3.4-5.0); TOTAL BILIRUBIN 0.2 mg/dL (0.0-1.0)
[2018-01-07 11:01] LABS: BILIRUBIN,URINE NEGATIVE (NEGATIVE); BLOOD, URINE NEGATIVE (NEGATIVE); COLOR,URINE YELLOW (YELLOW); LEUKOCYTE ESTERASE ,URINE NEGATIVE (NEGATIVE); NITRITE, URINE NEGATIVE (NEGATIVE); UGLUCOSE NEGATIVE (NEGATIVE)
[2018-01-07 11:04] LABS: APPEARANCE,URINE CLEAR (CLEAR); RBC,URINE NONE SEEN /HPF (0-5); WBC,URINE 0-5 (RARE) /HPF (0-5)
[2018-01-07] MEDS ORDERED: NACL 0.9% 1,000 ML IV SCH (11:19)
[2018-01-07] MEDS ORDERED: ACETAMINOPHEN 325 MG TAB PO PRN (11:20)
[2018-01-07] MEDS ORDERED: DOCUSATE SODIUM 100 MG GELCAP PO PRN (11:20)
[2018-01-07] MEDS ORDERED: HYDROcodone/APAP 7.5/325 MG 1 TAB PO PRN (11:20)
[2018-01-07 12:40] VITALS: BP 105/75
[2018-01-07] MEDS ORDERED: COMPOSITE DRESSING TP PRN (14:00)
[2018-01-07] MEDS ORDERED: ALBUTEROL SULFATE/IPRATROPIU 3 ML SOL INH PRN (14:05)
[2018-01-07] MEDS ORDERED: SENNA 8.6 MG TAB GT SCH (14:58)
[2018-01-07] MEDS ORDERED: KCL 20 MEQ/WATER INJ PREMIX 200 ML IV SCH (15:00)
[2018-01-07 15:08] LABS: CHOL/HDL RATIO 3.1 (1-4.5); HDL CHOLESTEROL 64 mg/dL (40-60); LDL (CALC) 117 mg/dL (60-100); LIPASE 184 U/L (73-393); MAGNESIUM 1.9 mg/dL (1.8-2.4); PHOSPHORUS 1.7 mg/dL (2.5-4.9); THYROID STIMULATING HORMONE 1.97 uIU/mL (0.34-3.74); TRIGLYCERIDES 83 mg/dL (30-150)
[2018-01-07] MEDS: DEXT 5% /NACL 0.9% 1,000 ML IV SCH (15:34)
[2018-01-07 16:00] VITALS: BP 145/66
[2018-01-07] MEDS ORDERED: SODIUM PHOS / POTASSIUM PHOS 1 PKT PDR PO SCH (18:00)
[2018-01-07 20:00] VITALS: BP 148/97
[2018-01-07] MEDS: SKINTEGRITY HYDROGEL TP SCH (21:00)
[2018-01-07] MEDS: GLYCOPYRROLATE 1 MG TAB PEG SCH (21:29)
[2018-01-07] MEDS: lamoTRIgine 25 MG TAB PEG SCH (21:29)
[2018-01-07] MEDS: DOCUSATE 100 MG/10 ML UDC GT SCH (21:29)
[2018-01-07] MEDS: MONTELUKAST SODIUM 10 MG TAB PEG SCH (21:30)
[2018-01-07] MEDS: ONDANSETRON 4 MG/2 ML VIAL IM/IVP PRN (22:36)
[2018-01-08] VITALS: BP 198/107
[2018-01-08] MEDS ORDERED: amLODIPine 5 MG TAB GT SCH (00:30)
[2018-01-08] MEDS: METOCLOPRAMIDE 10 MG/2 ML INJ VIAL IVP PRN ×2 (01:22→09:41)
[2018-01-08 04:00] VITALS: BP 168/99
[2018-01-08] MEDS ORDERED: LORazepam 2 MG/ML VIAL IM/IVP ONE (04:30)
[2018-01-08] MEDS: LEVOTHYROXINE 0.025 MG TAB PEG SCH (06:13)
[2018-01-08] MEDS: ONDANSETRON 4 MG/2 ML VIAL IM/IVP PRN ×2 (06:13→10:53)
[2018-01-08 06:24] LABS: T4 (THYROXINE) 6.8 ug/dL (4.5-12.0)
[2018-01-08 07:03] LABS: BASOPHILS % (AUTO) 0.7 % (0.0-2.0); EOSINOPHILS # (AUTO) 0.1 K/uL (0-0.4); EOSINOPHILS % (AUTO) 0.8 % (0.0-4.0); HEMATOCRIT 45.4 % (36-48); HEMOGLOBIN 14.6 g/dL (12.0-16.0); LYMPHOCYTES # (AUTO) 1.2 K/uL (2.5-16.5); LYMPHOCYTES % (AUTO) 15.9 % (20.5-51.1); MEAN CORPUSCULAR HEMOGLOBIN 28 pg (27-31); MEAN CORPUSCULAR HGB CONC 32 g/dL (33-37); MEAN CORPUSCULAR VOLUME 85.8 fL (80-94); MONOCYTES # (AUTO) 0.5 K/uL (0.8-1.0); MONOCYTES % (AUTO) 6.6 % (1.7-9.3); NEUTROPHILS # (AUTO) 5.7 K/uL (1.8-7.7); PLATELET COUNT (AUTO) 231 K/uL (140-450); RED BLOOD CELL COUNT(AUTO) 5.29 MIL/uL (4.20-5.40); RED CELL DISTRIBUTION WIDTH 16.3 % (11.6-13.7); WHITE BLOOD COUNT (AUTO) 7.5 K/uL (4.8-10.8)
[2018-01-08 07:49] LABS: MAGNESIUM 1.9 mg/dL (1.8-2.4); PHOSPHORUS 3.3 mg/dL (2.5-4.9)
[2018-01-08 07:51] LABS: ANION GAP 15.8 (8-16); CARBON DIOXIDE 23.4 mmol/L (21-32); CREATININE 0.6 mg/dL (0.6-1.3); POTASSIUM 4.2 mmol/L (3.5-5.1)
[2018-01-08 08:00] VITALS: BP 125/89
[2018-01-08] MEDS: MULTIVITAMIN/MINERALS 15 ML UDBTL GT SCH (09:39)
[2018-01-08] MEDS: DOCUSATE 100 MG/10 ML UDC GT SCH ×2 (09:39→20:54)
[2018-01-08] MEDS: PANTOPRAZOLE 40 MG INJ VIAL IVP SCH (09:40)
[2018-01-08] MEDS: lamoTRIgine 25 MG TAB PEG SCH ×2 (09:40→20:55)
[2018-01-08] MEDS: amLODIPine 5 MG TAB PO SCH (09:41)
[2018-01-08] MEDS: SENNA 8.6 MG TAB GT SCH (09:41)
[2018-01-08] MEDS: GLYCOPYRROLATE 1 MG TAB PEG SCH ×2 (09:43→20:55)
[2018-01-08] MEDS ORDERED: METOPROLOL 25 MG TAB PO SCH (10:12)
[2018-01-08] MEDS: ASCORBIC ACID 500 MG/5 ML ORASYR PEG SCH (10:53)
[2018-01-08] MEDS: SKINTEGRITY HYDROGEL TP SCH ×2 (10:55→20:56)
[2018-01-08 10:57] VITALS: BP 150/96
[2018-01-08 16:00] VITALS: BP 139/71
[2018-01-08] MEDS ORDERED: BISACODYL 10 MG SUPP RC SCH (17:15)
[2018-01-08 20:00] VITALS: BP 125/72
[2018-01-08] MEDS: MONTELUKAST SODIUM 10 MG TAB PEG SCH (20:54)
[2018-01-08] MEDS: DEXT 5% /NACL 0.9% 1,000 ML IV SCH ×2 (20:54→23:20)
[2018-01-08] MEDS: METOPROLOL 25 MG TAB PO SCH (20:55)
[2018-01-09] VITALS: BP 111/62
[2018-01-09 04:00] VITALS: BP 123/78
[2018-01-09] MEDS: LEVOTHYROXINE 0.025 MG TAB PEG SCH (05:11)
[2018-01-09 07:05] LABS: BASOPHILS % (AUTO) 0.4 % (0.0-2.0); EOSINOPHILS # (AUTO) 0.4 K/uL (0-0.4); EOSINOPHILS % (AUTO) 5.3 % (0.0-4.0); HEMATOCRIT 38.6 % (36-48); HEMOGLOBIN 12.1 g/dL (12.0-16.0); LYMPHOCYTES # (AUTO) 2.7 K/uL (2.5-16.5); LYMPHOCYTES % (AUTO) 36.1 % (20.5-51.1); MEAN CORPUSCULAR HEMOGLOBIN 27 pg (27-31); MEAN CORPUSCULAR HGB CONC 32 g/dL (33-37); MEAN CORPUSCULAR VOLUME 86.6 fL (80-94); MONOCYTES # (AUTO) 0.6 K/uL (0.8-1.0); MONOCYTES % (AUTO) 7.9 % (1.7-9.3); NEUTROPHILS # (AUTO) 3.8 K/uL (1.8-7.7); NEUTROPHILS % (AUTO) 50.3 % (42.2-75.2); PLATELET COUNT (AUTO) 209 K/uL (140-450); RED BLOOD CELL COUNT(AUTO) 4.46 MIL/uL (4.20-5.40); RED CELL DISTRIBUTION WIDTH 16.1 % (11.6-13.7); WHITE BLOOD COUNT (AUTO) 7.5 K/uL (4.8-10.8)
[2018-01-09 07:22] LABS: POTASSIUM 3.6 mmol/L (3.5-5.1)
[2018-01-09 07:23] LABS: CARBON DIOXIDE 26.6 mmol/L (21-32); CREATININE 0.7 mg/dL (0.6-1.3)
[2018-01-09 07:43] LABS: MAGNESIUM 1.9 mg/dL (1.8-2.4); PHOSPHORUS 3.5 mg/dL (2.5-4.9)
[2018-01-09 08:00] VITALS: BP 130/58
[2018-01-09] MEDS: SKINTEGRITY HYDROGEL TP SCH ×2 (09:00→20:41)
[2018-01-09] MEDS: DOCUSATE 100 MG/10 ML UDC GT SCH ×2 (09:23→20:39)
[2018-01-09] MEDS: GLYCOPYRROLATE 1 MG TAB PEG SCH ×2 (09:23→20:40)
[2018-01-09] MEDS: amLODIPine 5 MG TAB PO SCH (09:24)
[2018-01-09] MEDS: SENNA 8.6 MG TAB GT SCH (09:24)
[2018-01-09] MEDS: PANTOPRAZOLE 40 MG INJ VIAL IVP SCH (09:24)
[2018-01-09] MEDS: METOPROLOL 25 MG TAB PO SCH ×2 (09:24→20:40)
[2018-01-09] MEDS: MULTIVITAMIN/MINERALS 15 ML UDBTL GT SCH (09:25)
[2018-01-09] MEDS: lamoTRIgine 25 MG TAB PEG SCH ×2 (09:26→20:40)
[2018-01-09] MEDS: ASCORBIC ACID 500 MG/5 ML ORASYR PEG SCH (09:53)
[2018-01-09 12:11] VITALS: BP 139/74
[2018-01-09] MEDS: DEXT 5% /NACL 0.9% 1,000 ML IV SCH (14:45)
[2018-01-09 16:00] VITALS: BP 131/75
[2018-01-09] MEDS: METOCLOPRAMIDE 10 MG/2 ML INJ VIAL IVP SCH (20:39)
[2018-01-09] MEDS: MONTELUKAST SODIUM 10 MG TAB PEG SCH (20:40)
[2018-01-10] VITALS: BP 129/60
[2018-01-10] MEDS: METOCLOPRAMIDE 10 MG/2 ML INJ VIAL IVP SCH ×3 (05:40→23:01)
[2018-01-10] MEDS: LEVOTHYROXINE 0.025 MG TAB PEG SCH (05:40)
[2018-01-10 08:00] VITALS: BP 163/85
[2018-01-10] MEDS: DEXT 5% /NACL 0.9% 1,000 ML IV SCH ×2 (08:40→16:53)
[2018-01-10 08:47] LABS: ANION GAP 12.7 (8-16); CARBON DIOXIDE 26.7 mmol/L (21-32); CREATININE 0.6 mg/dL (0.6-1.3); POTASSIUM 3.4 mmol/L (3.5-5.1)
[2018-01-10 09:03] LABS: HEMATOCRIT 33.3 % (36-48); HEMOGLOBIN 11.4 g/dL (12.0-16.0); MEAN CORPUSCULAR VOLUME 88.9 fL (80-94); RED BLOOD CELL COUNT(AUTO) 3.74 MIL/uL (4.20-5.40); WHITE BLOOD COUNT (AUTO) 6.4 K/uL (4.8-10.8)
[2018-01-10 09:04] LABS: BASOPHILS % (AUTO) 0.7 % (0.0-2.0); EOSINOPHILS % (AUTO) 1.8 % (0.0-4.0); LYMPHOCYTES % (AUTO) 28.4 % (20.5-51.1); MEAN CORPUSCULAR HEMOGLOBIN 30 pg (27-31); MEAN CORPUSCULAR HGB CONC 34 g/dL (33-37); MONOCYTES % (AUTO) 4.2 % (1.7-9.3); NEUTROPHILS % (AUTO) 64.9 % (42.2-75.2); PLATELET COUNT (AUTO) 189 K/uL (140-450); RED CELL DISTRIBUTION WIDTH 14.9 % (11.6-13.7)
[2018-01-10 09:05] LABS: EOSINOPHILS # (AUTO) 0.1 K/uL (0-0.4); LYMPHOCYTES # (AUTO) 1.8 K/uL (2.5-16.5); MONOCYTES # (AUTO) 0.3 K/uL (0.8-1.0); NEUTROPHILS # (AUTO) 4.2 K/uL (1.8-7.7)
[2018-01-10] MEDS: ASCORBIC ACID 500 MG/5 ML ORASYR PEG SCH (09:27)
[2018-01-10] MEDS: DOCUSATE 100 MG/10 ML UDC GT SCH ×2 (09:27→21:53)
[2018-01-10] MEDS: PANTOPRAZOLE 40 MG INJ VIAL IVP SCH (09:28)
[2018-01-10] MEDS: amLODIPine 5 MG TAB PO SCH (09:29)
[2018-01-10] MEDS: MULTIVITAMIN/MINERALS 15 ML UDBTL GT SCH (09:29)
[2018-01-10] MEDS: GLYCOPYRROLATE 1 MG TAB PEG SCH ×2 (09:30→21:53)
[2018-01-10] MEDS: lamoTRIgine 25 MG TAB PEG SCH ×2 (09:30→21:52)
[2018-01-10] MEDS: SENNA 8.6 MG TAB GT SCH (09:31)
[2018-01-10] MEDS: METOPROLOL 25 MG TAB PO SCH ×2 (09:31→21:53)
[2018-01-10] MEDS: SKINTEGRITY HYDROGEL TP SCH ×2 (09:33→21:53)
[2018-01-10] MEDS ORDERED: HYDRAGUARD CREAM TP SCH (10:30)
[2018-01-10 16:00] VITALS: BP 120/72
[2018-01-10] MEDS: HYDRAGUARD CREAM TP SCH (21:53)
[2018-01-10] MEDS: MONTELUKAST SODIUM 10 MG TAB PEG SCH (21:53)
[2018-01-11] VITALS: BP 153/73
[2018-01-11] MEDS: DEXT 5% /NACL 0.9% 1,000 ML IV SCH ×2 (01:20→20:13)
[2018-01-11] MEDS: METOCLOPRAMIDE 10 MG/2 ML INJ VIAL IVP SCH ×3 (05:14→20:57)
[2018-01-11] MEDS: LEVOTHYROXINE 0.025 MG TAB PEG SCH (05:15)
[2018-01-11 08:00] VITALS: BP 135/69
[2018-01-11 08:06] LABS: BASOPHILS % (AUTO) 0.6 % (0.0-2.0); EOSINOPHILS # (AUTO) 0.1 K/uL (0-0.4); EOSINOPHILS % (AUTO) 1.8 % (0.0-4.0); HEMATOCRIT 32.2 % (36-48); HEMOGLOBIN 10.4 g/dL (12.0-16.0); LYMPHOCYTES # (AUTO) 1.7 K/uL (2.5-16.5); MEAN CORPUSCULAR HEMOGLOBIN 28 pg (27-31); MEAN CORPUSCULAR HGB CONC 32 g/dL (33-37); MEAN CORPUSCULAR VOLUME 86.6 fL (80-94); MONOCYTES # (AUTO) 0.3 K/uL (0.8-1.0); MONOCYTES % (AUTO) 6.6 % (1.7-9.3); NEUTROPHILS # (AUTO) 2.6 K/uL (1.8-7.7); PLATELET COUNT (AUTO) 178 K/uL (140-450); RED BLOOD CELL COUNT(AUTO) 3.72 MIL/uL (4.20-5.40); RED CELL DISTRIBUTION WIDTH 15.8 % (11.6-13.7); WHITE BLOOD COUNT (AUTO) 4.7 K/uL (4.8-10.8)
[2018-01-11] MEDS: HYDRAGUARD CREAM TP SCH ×2 (09:00→20:56)
[2018-01-11 09:32] LABS: ANION GAP 14.2 (8-16); CARBON DIOXIDE 24.7 mmol/L (21-32); CREATININE 0.5 mg/dL (0.6-1.3); POTASSIUM 2.9 mmol/L (3.5-5.1)
[2018-01-11] MEDS: DOCUSATE 100 MG/10 ML UDC GT SCH ×2 (10:01→20:55)
[2018-01-11] MEDS: ASCORBIC ACID 500 MG/5 ML ORASYR PEG SCH (10:01)
[2018-01-11] MEDS: GLYCOPYRROLATE 1 MG TAB PEG SCH ×2 (10:02→20:55)
[2018-01-11] MEDS: SENNA 8.6 MG TAB GT SCH (10:02)
[2018-01-11] MEDS: MULTIVITAMIN/MINERALS 15 ML UDBTL GT SCH (10:02)
[2018-01-11] MEDS: PANTOPRAZOLE 40 MG INJ VIAL IVP SCH (10:02)
[2018-01-11] MEDS: lamoTRIgine 25 MG TAB PEG SCH ×2 (10:02→20:55)
[2018-01-11] MEDS: METOPROLOL 25 MG TAB PO SCH ×2 (10:03→20:56)
[2018-01-11] MEDS: amLODIPine 5 MG TAB PO SCH (10:03)
[2018-01-11] MEDS: SKINTEGRITY HYDROGEL TP SCH ×2 (10:04→20:57)
[2018-01-11] MEDS ORDERED: KCL 20 MEQ/WATER INJ PREMIX 200 ML IV SCH (13:00)
[2018-01-11 16:01] VITALS: BP 146/83
[2018-01-11] MEDS ORDERED: CHLORHEXADINE GLUC 2% CLOTH TP SCH (18:15)
[2018-01-11] MEDS ORDERED: MUPIROCIN 2% OINT 22 GM TUBE TP SCH (18:15)
[2018-01-11] MEDS: MONTELUKAST SODIUM 10 MG TAB PEG SCH (20:56)
[2018-01-12] VITALS: BP 159/72
[2018-01-12] MEDS: MUPIROCIN 2% OINT 22 GM TUBE TP SCH (05:30)
[2018-01-12] MEDS: METOCLOPRAMIDE 10 MG/2 ML INJ VIAL IVP SCH ×3 (05:41→21:20)
[2018-01-12] MEDS: LEVOTHYROXINE 0.025 MG TAB PEG SCH (05:42)
[2018-01-12 06:35] LABS: BASOPHILS % (AUTO) 0.6 % (0.0-2.0); EOSINOPHILS # (AUTO) 0.1 K/uL (0-0.4); EOSINOPHILS % (AUTO) 1.5 % (0.0-4.0); HEMATOCRIT 30.6 % (36-48); LYMPHOCYTES # (AUTO) 1.7 K/uL (2.5-16.5); LYMPHOCYTES % (AUTO) 44.1 % (20.5-51.1); MEAN CORPUSCULAR HEMOGLOBIN 27 pg (27-31); MEAN CORPUSCULAR HGB CONC 33 g/dL (33-37); MEAN CORPUSCULAR VOLUME 84.1 fL (80-94); MONOCYTES # (AUTO) 0.3 K/uL (0.8-1.0); MONOCYTES % (AUTO) 7.1 % (1.7-9.3); NEUTROPHILS # (AUTO) 1.8 K/uL (1.8-7.7); NEUTROPHILS % (AUTO) 46.7 % (42.2-75.2); PLATELET COUNT (AUTO) 172 K/uL (140-450); RED BLOOD CELL COUNT(AUTO) 3.64 MIL/uL (4.20-5.40); RED CELL DISTRIBUTION WIDTH 15.7 % (11.6-13.7); WHITE BLOOD COUNT (AUTO) 3.9 K/uL (4.8-10.8)
[2018-01-12 06:57] LABS: ANION GAP 11.1 (8-16); CARBON DIOXIDE 26.3 mmol/L (21-32); CREATININE 0.5 mg/dL (0.6-1.3); POTASSIUM 3.4 mmol/L (3.5-5.1)
[2018-01-12 08:00] VITALS: BP 140/86
[2018-01-12] MEDS: PANTOPRAZOLE 40 MG INJ VIAL IVP SCH (08:43)
[2018-01-12] MEDS: lamoTRIgine 25 MG TAB PEG SCH ×2 (08:43→21:20)
[2018-01-12] MEDS: SENNA 8.6 MG TAB GT SCH (08:43)
[2018-01-12] MEDS: MULTIVITAMIN/MINERALS 15 ML UDBTL GT SCH (08:43)
[2018-01-12] MEDS: GLYCOPYRROLATE 1 MG TAB PEG SCH ×2 (08:44→21:21)
[2018-01-12] MEDS: amLODIPine 5 MG TAB PO SCH (08:44)
[2018-01-12] MEDS: METOPROLOL 25 MG TAB PO SCH ×2 (08:44→21:20)
[2018-01-12] MEDS: ASCORBIC ACID 500 MG/5 ML ORASYR PEG SCH (08:45)
[2018-01-12] MEDS: DOCUSATE 100 MG/10 ML UDC GT SCH ×2 (08:46→21:20)
[2018-01-12] MEDS: CHLORHEXADINE GLUC 2% CLOTH TP SCH (08:46)
[2018-01-12] MEDS ORDERED: POTASSIUM CHLORIDE 20% 40 MEQ/15 ML UDC GT SCH (09:00)
[2018-01-12] MEDS: HYDRAGUARD CREAM TP SCH ×2 (09:00→21:21)
[2018-01-12] MEDS: SKINTEGRITY HYDROGEL TP SCH ×2 (09:00→21:22)
[2018-01-12] MEDS ORDERED: METO25TA PO (10:27)
[2018-01-12] MEDS: MUPIROCIN CA NASAL 2% 1GM TUBE NS SCH (12:49)
[2018-01-12 16:00] VITALS: BP 141/75
[2018-01-12] MEDS: DEXT 5% /NACL 0.9% 1,000 ML IV SCH (20:13)
[2018-01-12] MEDS: MONTELUKAST SODIUM 10 MG TAB PEG SCH (21:21)
[2018-01-12 23:10] VITALS: BP 134/74
[2018-01-13] MEDS: CHLORHEXADINE GLUC 2% CLOTH TP SCH (05:15)
[2018-01-13] MEDS: METOCLOPRAMIDE 10 MG/2 ML INJ VIAL IVP SCH ×2 (05:15→13:02)
[2018-01-13] MEDS: LEVOTHYROXINE 0.025 MG TAB PEG SCH (05:15)
[2018-01-13] MEDS: MUPIROCIN 2% OINT 22 GM TUBE TP SCH (05:16)
[2018-01-13 08:00] VITALS: BP 140/86
[2018-01-13 08:13] LABS: BASOPHILS % (AUTO) 0.4 % (0.0-2.0); EOSINOPHILS % (AUTO) 0.4 % (0.0-4.0); HEMATOCRIT 38.7 % (36-48); HEMOGLOBIN 12.5 g/dL (12.0-16.0); LYMPHOCYTES # (AUTO) 1.1 K/uL (2.5-16.5); LYMPHOCYTES % (AUTO) 15.5 % (20.5-51.1); MEAN CORPUSCULAR HEMOGLOBIN 27 pg (27-31); MEAN CORPUSCULAR HGB CONC 32 g/dL (33-37); MEAN CORPUSCULAR VOLUME 84.5 fL (80-94); MONOCYTES # (AUTO) 0.4 K/uL (0.8-1.0); MONOCYTES % (AUTO) 5.7 % (1.7-9.3); NEUTROPHILS # (AUTO) 5.8 K/uL (1.8-7.7); PLATELET COUNT (AUTO) 219 K/uL (140-450); RED BLOOD CELL COUNT(AUTO) 4.59 MIL/uL (4.20-5.40); WHITE BLOOD COUNT (AUTO) 7.4 K/uL (4.8-10.8)
[2018-01-13 08:44] LABS: ANION GAP 15.7 (8-16); CARBON DIOXIDE 25.7 mmol/L (21-32); CREATININE 0.7 mg/dL (0.6-1.3); POTASSIUM 3.4 mmol/L (3.5-5.1)
[2018-01-13] MEDS: SENNA 8.6 MG TAB GT SCH (09:00)
[2018-01-13] MEDS: MULTIVITAMIN/MINERALS 15 ML UDBTL GT SCH (09:00)
[2018-01-13] MEDS ORDERED: POLYETHYLENE GLYCOL 17 GM/PKT PO SCH (09:00)
[2018-01-13] MEDS: lamoTRIgine 25 MG TAB PEG SCH (09:00)
[2018-01-13] MEDS: GLYCOPYRROLATE 1 MG TAB PEG SCH (09:00)
[2018-01-13] MEDS: DOCUSATE 100 MG/10 ML UDC GT SCH (09:00)
[2018-01-13] MEDS: METOPROLOL 25 MG TAB PO SCH (09:00)
[2018-01-13] MEDS: ASCORBIC ACID 500 MG/5 ML ORASYR PEG SCH (09:00)
[2018-01-13] MEDS: amLODIPine 5 MG TAB PO SCH (09:00)
[2018-01-13] MEDS: PANTOPRAZOLE 40 MG INJ VIAL IVP SCH (09:41)
[2018-01-13] MEDS: ONDANSETRON 4 MG/2 ML VIAL IM/IVP PRN (09:41)
[2018-01-13 12:00] VITALS: BP 152/82
[2018-01-13 12:11] LABS: FOLIC ACID 9.1 ng/mL (>3.0)
[2018-01-13] MEDS ORDERED: SENN-89 GT (12:11)
[2018-01-13] MEDS ORDERED: ONDA2SOL45 IM/IVP (12:11)
[2018-01-13] MEDS: SKINTEGRITY HYDROGEL TP SCH (12:18)
[2018-01-13] MEDS: HYDRAGUARD CREAM TP SCH (12:18)
[2018-01-13] MEDS: MUPIROCIN CA NASAL 2% 1GM TUBE NS SCH (12:37)
[2018-01-13] MEDS ORDERED: POTASSIUM CHLORIDE 20% 40 MEQ/15 ML UDC GT SCH (14:30)
== END 2018-01-13 18:05 | disposition hospice, home (50) | DRG 254 ==
LOC: MED 06:05 → MTU 11:30
PROVIDERS: ADMIT General Practice; ATTEND General Practice
DX: K31.84 Gastroparesis (principal); G82.50 Quadriplegia, unspecified; C25.9 Malignant neoplasm of pancreas, unspecified; K86.3 Pseudocyst of pancreas; K92.2 Gastrointestinal hemorrhage, unspecified; F72 Severe intellectual disabilities; D64.9 Anemia, unspecified; L89.92 Pressure ulcer of unspecified site, stage 2; Z93.1 Gastrostomy status; G40.909 Epilepsy, unspecified, not intractable, without status epilepticus; K59.00 Constipation, unspecified; E87.6 Hypokalemia; I10 Essential (primary) hypertension; E03.9 Hypothyroidism, unspecified; J45.909 Unspecified asthma, uncomplicated; K86.9 Disease of pancreas, unspecified; Z93.4 Other artificial openings of gastrointestinal tract status
CPT/HCPCS: 36415; 71045; 74018; 74241; 80048; 80053; 81001; 82140; 82272; 82607; 82728; 82746; 83036; 83540; 83605; 83690; 83735; 83880; 84100; 84436; 84443; 84479; 84484; 85025; 85045; 85610; 85730; 86886; 86900; 86901; 87040; 87081; 93005; 96374; 96375; 99285; A6248; C9113; G0482; J2405; J2765; J3480; J3490; J7030; J7042; J7620; Q0092

== ENCOUNTER 2018-01-30 16:40 | Inpatient (IN) | payer MEDICAID ==
[~2018-01-30] VITALS: Ht 152.4 cm; Wt 53.5 kg
[~2018-01-30 16:40] MED LIST changes: -BACTO TP; -CHLO118S2 TP; +METO25TA PO; -MIRABULK PEG; +ONDA2SOL45 IM/IVP; -PUL.5N INH; -ROC1PM IV; +SENN-89 GT; -SIME20SU1 PO; -[UNRECOGNIZED DRUG - CODE] PEG
--- NOTE | 2018-01-30 16:40 | NUR ---
PT TO BED 10 VIA EMS
[2018-01-30 16:45] VITALS: BP 122/69
--- NOTE | 2018-01-30 17:11 | NUR ---
BIB EMS FROM A SNF WITH C/O CLOG G-TUBE UNABLE TO PASS MEDICATION FOUND AT 1100 THIS MORNING HX; SEIZURE, SPASTIC QUAD, CONSTIATION, CHRONIC ALLERGIC RHINITIS.PT NON VERBAL, UNABLE TO FOLLOW COMMANDS. AWAKE,ALERT. LUNGS CLEAR BL; HR EVEN AND REGULAR;PATIENT POSITIONED FOR COMFORT; HOB ELEVATED; BEDRAILS UP X2; BED DOWN. ER MD MADE AWARE OF PT STATUS.
--- NOTE | 2018-01-30 17:55 | NUR ---
GTDEMETRIA REPLACED BY WITHOUT DIFFICULTIES.DRESSING APPLIED
--- NOTE | 2018-01-30 18:08 | NUR ---
XR AT BEDSIDE TO CHECK TUBE PLACEMENT
--- NOTE | 2018-01-30 18:45 | NUR ---
SPOKE TO CALEB ACOSTA FROM [facility] STATING THAT PATIENT IS RETURNING TO THE FACILITY. FERN REPLACED FR.20. NURSE FROM HOSPICE WILL CALL ME BACK FOR TRANSPORT
--- NOTE | 2018-01-30 18:50 | NUR ---
NURSE FROM HOSPICE CALLED BACK. NURSE STATED THAT WHAT THE NEEDED REPLACED IS GASTRO JEJUNOSTOMY TUBE NOT A GTUBE.DR. KO MADE AWARE. DR. KO ADVISED NURSE TO ASK PATIENTS DOCTOR TO CALL BACK IN ER TO TALK TO ER DOCTOR FOR DISPOSITION.
--- NOTE | 2018-01-30 19:16 | NUR ---
PT LYING IN BED, VITALS STABLE. PT IS NON VERBAL. MD MADE AWARE OF STATUS.
--- NOTE | 2018-01-30 19:18 | NUR ---
X RAY AT PT BEDSIDE
--- NOTE | 2018-01-30 19:19 | NUR ---
Elio membreno in ED - 01/30/18 at 1920 by MEDBCS X RAY AT PT BEDSIDE
--- NOTE | 2018-01-30 19:28 | NUR ---
EKG WAS DONE ON PT, TOLERATED WELL.
[2018-01-30 19:50] LABS: BASOPHILS % (AUTO) 0.4 % (0.0-2.0); EOSINOPHILS % (AUTO) 0.6 % (0.0-4.0); HEMATOCRIT 34.2 % (36-48); LYMPHOCYTES # (AUTO) 1.9 K/uL (2.5-16.5); LYMPHOCYTES % (AUTO) 24.2 % (20.5-51.1); MEAN CORPUSCULAR HEMOGLOBIN 27 pg (27-31); MEAN CORPUSCULAR HGB CONC 32 g/dL (33-37); MEAN CORPUSCULAR VOLUME 84.5 fL (80-94); MONOCYTES # (AUTO) 0.5 K/uL (0.8-1.0); MONOCYTES % (AUTO) 6.7 % (1.7-9.3); NEUTROPHILS # (AUTO) 5.5 K/uL (1.8-7.7); NEUTROPHILS % (AUTO) 68.1 % (42.2-75.2); PLATELET COUNT (AUTO) 287 K/uL (140-450); RED BLOOD CELL COUNT(AUTO) 4.04 MIL/uL (4.20-5.40); RED CELL DISTRIBUTION WIDTH 15.9 % (11.6-13.7); WHITE BLOOD COUNT (AUTO) 8.1 K/uL (4.8-10.8)
[2018-01-30 20:06] LABS: ALBUMIN 3.1 g/dL (3.4-5.0); CREATININE 0.9 mg/dL (0.6-1.3); TOTAL BILIRUBIN 0.3 mg/dL (0.0-1.0)
[2018-01-30 20:37] LABS: ANION GAP -0.3 (8-16); CARBON DIOXIDE 45.7 mmol/L (21-32); POTASSIUM 2.4 mmol/L (3.5-5.1)
[2018-01-30] MEDS ORDERED: ACETAMINOPHEN 325 MG TAB PO PRN (20:40)
[2018-01-30] MEDS ORDERED: POTASSIUM CHLORIDE 20% 40 MEQ/15 ML UDC PO ONE (20:40)
[2018-01-30] MEDS ORDERED: HYDROcodone/APAP 5/325 MG 1 TAB TAB PO PRN (20:40)
[2018-01-30] MEDS ORDERED: MORPHINE SULFATE 2 MG/ML SYR IVP PRN (20:40)
[2018-01-30] MEDS ORDERED: DOCUSATE SODIUM 100 MG GELCAP PO PRN (20:40)
[2018-01-30] MEDS ORDERED: ZOLPIDEM 5 MG TAB PO PRN (20:40)
[2018-01-30] MEDS ORDERED: ONDANSETRON 4 MG/2 ML VIAL IM/IVP PRN (20:40)
--- NOTE | 2018-01-30 20:45 | NUR ---
Elio membreno in ED - 01/30/18 at 2210 by [email or web address] Pt report given to PAZ PANG. Transfer of care at this time.PT VITALS STABLE
[2018-01-30 21:13] LABS: PROTHROMBIN TIME 9.4 secs (10.8-13.4)
[2018-01-30 21:23] LABS: CHOL/HDL RATIO 3.8 (1-4.5); MAGNESIUM 3.6 mg/dL (1.8-2.4); PHOSPHORUS 2.9 mg/dL (2.5-4.9); THYROID STIMULATING HORMONE 2.69 uIU/mL (0.34-3.74)
--- NOTE | 2018-01-30 21:40 | NUR ---
Patient will be admitted to care of DR. CELAYA. Admited to TELEMETRY. Will go to room 116a. Belongings list completed. Report to lali eddy.
--- NOTE | 2018-01-30 21:40 | NUR ---
Pt report given to PAZ PANG. Transfer of care at this time. VITALS STABLE
--- NOTE | 2018-01-30 21:45 | NUR ---
RECEIVED REPORT FROM ED NURSE AT BEDSIDE. PT IN STABLE CONDITION. PT IS ALTERED. INTRODUCED SELF TO PT. BOARD UPDATED. IV SITE R WRIST 24G RUNNING NS@60ML/HR PATENT AND INTACT. SKIN WARM, DRY, AND NOT INTACT DUE TO OPEN WOUNDS ON THE R UPPER BUTTOCKS, LEFT FOOT, AND A RASH ON THE LEFT SIDE OF THE NECK. GTUBE. PT ON SEIZURE PRECAUTIONS. FLACC 0. NO SOB. BED LOCKED IN LOW POSITION. CALL QUIROS WITHIN REACH. SAFETY PRECAUTIONS IN PLACE.
[2018-01-30] MEDS: NACL 0.9% 1,000 ML IV SCH (21:54)
[2018-01-30] MEDS ORDERED: LORazepam 2 MG/ML VIAL IM/IVP PRN (21:55)
[2018-01-30] MEDS ORDERED: POTASSIUM CHLORIDE 40 MEQ, LIDOCAINE MPF 1% - 5 mL VIAL 25 MG in NACL 0.9% 250 ML IV SCH (22:00)
[2018-01-30 22:18] LABS: CKMB RELATIVE INDEX 0.1 (0.0-2.5); CREATINE KINASE MB 0.2 ng/mL (0-3.6)
[2018-01-30] MEDS: KCL 20 MEQ/WATER INJ PREMIX 200 ML IV SCH (22:58)
--- NOTE | 2018-01-30 22:58 | NUR ---
POTASSIUM HUNG AND RUNNING PIGGYBACK THROUGH 2 IV PUMPS. PT TOLERATING WELL.
[2018-01-31] VITALS: BP 105/51
[2018-01-31 01:24] LABS: ANION GAP 5.8 (8-16); POTASSIUM 3.1 mmol/L (3.5-5.1)
[2018-01-31 01:35] LABS: CARBON DIOXIDE 41.3 mmol/L (21-32)
[2018-01-31] MEDS ORDERED: NACL 0.9% IRR 250 ML BOTTLE IR PRN (01:35)
[2018-01-31] MEDS ORDERED: COMPOSITE DRESSING TP PRN (01:40)
--- NOTE | 2018-01-31 01:45 | NUR ---
WOUND CARE DONE. SPRAYED WITH NS. PATTED DRY. 4X4 OPTIFOAM APPLIED. PT TOLERATED WELL.
--- NOTE | 2018-01-31 02:15 | NUR ---
LAB CALLED TO REPORT CARBON DIOXIDE CRITICAL VALUE OF 41.3. CO2 VALUE TRENDING DOWN. NOT NOTIFIED.
[2018-01-31 04:00] VITALS: BP_SYST 127; BP_SYST 98; BP_DIAS 46; BP_DIAS 70
--- NOTE | 2018-01-31 04:15 | NUR ---
NEW IV PLACED. LEFT WRIST 24G PATENT AND INTACT. 5 ATTEMPTS TAKEN. D/C THE LEFT WRIST 24G. CANNULA INTACT. Addendum: 01/31/18 at 0459 by Geovanny Araiza RN TIMED, DATED, AND INITIALED.
--- NOTE | 2018-01-31 05:00 | NUR ---
DR. SOMMERS CALLED SAYING HE NEEDS A URINALYSIS DONE.
[2018-01-31] MEDS: LEVOTHYROXINE 0.025 MG TAB PO SCH (06:02)
[2018-01-31 07:00] LABS: BASOPHILS % (AUTO) 0.2 % (0.0-2.0); EOSINOPHILS % (AUTO) 0.1 % (0.0-4.0); HEMATOCRIT 35.8 % (36-48); HEMOGLOBIN 11.6 g/dL (12.0-16.0); LYMPHOCYTES # (AUTO) 1.7 K/uL (2.5-16.5); LYMPHOCYTES % (AUTO) 19.7 % (20.5-51.1); MEAN CORPUSCULAR HEMOGLOBIN 28 pg (27-31); MEAN CORPUSCULAR HGB CONC 32 g/dL (33-37); MEAN CORPUSCULAR VOLUME 86.8 fL (80-94); MONOCYTES # (AUTO) 0.7 K/uL (0.8-1.0); MONOCYTES % (AUTO) 7.9 % (1.7-9.3); NEUTROPHILS # (AUTO) 6.2 K/uL (1.8-7.7); NEUTROPHILS % (AUTO) 72.1 % (42.2-75.2); PLATELET COUNT (AUTO) 289 K/uL (140-450); RED BLOOD CELL COUNT(AUTO) 4.13 MIL/uL (4.20-5.40); RED CELL DISTRIBUTION WIDTH 15.9 % (11.6-13.7); WHITE BLOOD COUNT (AUTO) 8.6 K/uL (4.8-10.8)
[2018-01-31] MEDS: ALBUTEROL 0.083% 2.5 MG/3 ML NEBU INH SCH ×2 (07:05→18:53)
[2018-01-31 07:15] LABS: ANION GAP 6.3 (8-16); CARBON DIOXIDE 36.9 mmol/L (21-32); POTASSIUM 3.2 mmol/L (3.5-5.1)
[2018-01-31 07:17] LABS: MAGNESIUM 3.2 mg/dL (1.8-2.4); PHOSPHORUS 1.4 mg/dL (2.5-4.9)
--- NOTE | 2018-01-31 07:30 | NUR ---
REPORT GIVEN TO AM NURSE AT BEDSIDE. PT IN STABLE CONDITION.
--- NOTE | 2018-01-31 07:30 | NUR ---
RECEIVED PT ON BED AA, CONFUSED, ORIENTED TO NAME ONLY., APHASIC. NO SOB NOTED. NO SIGNS OF PAIN AT THIS TIME. IV TO LT HAND PATENT AND INTACT. CHEST CLEAR. ABDOMEN SOFT, BOWEL SOUNDS PRESENT. PT CONTRACTED TO BUE AND BLE . WILL REPOSITION PT EVERY 2 HRS. BED ALARM ON. BED ON LOWEST POSITION. WITH 3 SIDE RAILS RAISED UP. WILL CONTINUE TO MONITOR PT.
[2018-01-31 08:00] VITALS: BP 93/55
--- NOTE | 2018-01-31 08:00 | NUR ---
G-TUBE PATENCY CHECKED. RESIDUALS 5-10 MLS.
--- NOTE | 2018-01-31 08:06 | NUR ---
PATIENT HAS BEEN SCREENED AND CATEGORIZED HIGH RISK. PATIENT WILL BE SEEN WITHIN 1-2 DAYS OF ADMISSION. 01/31-10/[address], [facility]
[2018-01-31] MEDS: Z-GUARD PASTE TP SCH (09:00)
[2018-01-31] MEDS: DOCUSATE 100 MG/10 ML UDC GT SCH ×2 (09:00→21:51)
[2018-01-31] MEDS: SENNA 8.6 MG TAB GT SCH (09:00)
[2018-01-31] MEDS: METOPROLOL 25 MG TAB PO SCH ×2 (09:00→22:00)
[2018-01-31] MEDS: amLODIPine 5 MG TAB PO SCH (09:00)
[2018-01-31] MEDS: LORATADINE 10 MG TAB PEG SCH (10:09)
[2018-01-31] MEDS: ASCORBIC ACID 500 MG TAB PEG SCH (10:10)
[2018-01-31] MEDS: TAMSULOSIN 0.4 MG CAP GT SCH (10:10)
[2018-01-31] MEDS: GLYCOPYRROLATE 1 MG TAB PEG SCH ×2 (10:10→21:54)
[2018-01-31] MEDS: METOCLOPRAMIDE 10 MG/10 ML SYRP UDC GT SCH ×4 (10:12→21:51)
[2018-01-31] MEDS: FLUTICASONE NASAL 50 MCG/ACTUATION 16 GM BTL NS SCH ×2 (10:12→21:53)
[2018-01-31] MEDS: TRIAMCINOLONE 0.025% CRM 15 GM TUBE TP SCH ×2 (10:13→21:00)
[2018-01-31] MEDS: MULTIVITAMIN/MINERALS 15 ML UDBTL GT SCH (10:15)
--- NOTE | 2018-01-31 10:15 | NUR ---
CLARA DITCHING MACHINE OPERATOR FROM [facility] CALLED STATED TO GIVE THEM A CALL (#[phone]) WHEN PT IS READY TO BE DISCHARGED SO THEY CAN HELP WITH THE TRANSPORTATION. COOPERER NURSE NOTIFIED.
--- NOTE | 2018-01-31 10:20 | NUR ---
DUE MEDS THRU G-TUBE GIVEN, PT TOLERATED WELL, NO V&V NOTED. NPO EXCEPT MEDS MAINTAINED.
--- NOTE | 2018-01-31 10:34 | NUR ---
01/31/18 RD INITIAL ASSESSMENT COMPLETED PLEASE REFER TO NUTRITION ASSESSMENT UNDER CARE ACTIVITY FOR ESTIMATED NEEDS. RECOMMENDATIONS: 1.WHEN MEDICALLY ABLE INITIATE TF WITH JEVITY 1.2 AT 10ML ADVANCE BY 10ML Q6H TO GOAL RATE 60ML/HR + 145ML FREE WATER FLUSH Q6H - PROVIDES DAILY: 2020ML, 1728KCALS, 80G PROTEIN, 1742ML FREE WATER 2. CONTINUE TO CHECK AND REPLETE LYTES PRN. 3. CONTINUE VITAMINS FOR WOUND HEALING. 4. RD WILL FOLLOW UP IN 2-3 DAYS; HIGH RISK. [address] BR[address], [facility]
[2018-01-31 12:00] VITALS: BP 110/59
--- NOTE | 2018-01-31 13:00 | NUR ---
PT SEEN BY Jaida PANG WITH NEW ORDERS.
--- NOTE | 2018-01-31 14:00 | NUR ---
Zig[employer] Notes: I attempted to meet with Patient for a screen, however; Patient is unable to express her needs is non-verbal. OPERATIONS SUPER[employer]OR [employer] also attempted to contact Patient's Model And Dye Person Alize Flores at ([facility] in [place]) . No response and I left her a voice mail MSG with my contact information and request for a return call.
[2018-01-31 16:00] VITALS: BP 126/71
--- NOTE | 2018-01-31 16:00 | NUR ---
TRANSFERRED PT ON A WOUND CARE BED.
[2018-01-31] MEDS: NACL 0.9% 1,000 ML IV SCH (18:01)
--- NOTE | 2018-01-31 18:28 | NUR ---
CALLED DR. Spencer GREENE AND SPOKE WITH HIM REGARDING THE GI CONSULT. DR. GREENE STATED HE IS AWARE AND WILL SEE PT TOMORROW.
--- NOTE | 2018-01-31 18:58 | NUR ---
PT RESTING. NO SOB NOTED. NO SIGNS OF PAIN. WILL ENDORSE TO NEXT SHIFT NURSE FOR CONTINUITY OF CARE.
--- NOTE | 2018-01-31 19:23 | NUR ---
RECEIVED FROM AM RN IN BED . SLEEPING. TOTAL CARE. TELEMETRY MONITORING. NO SOB. IVF SITE INTACT AND NO INFILTRATION. MENTALLY CHALLENGED. NEEDS WILL BE ANTICIPATED AND WILL BE MET. DX. OF GT MALFUNCTION. ISOLATION PRECAUTIONS OBSERVED RT MRSA NARES MDRO URINE.
[2018-01-31 19:52] VITALS: BP 93/51
--- NOTE | 2018-01-31 20:37 | NUR ---
REPORT GIVEN BY ORQUIDEA RN AT BEDSIDE FOR CONTINUITY OF CARE, DUE TO CHANGE OF ASSIGNMENTS, PT IN BED SLEEPING NO S/S OF PAIN OR DISTRESS NOTED
[2018-01-31] MEDS: MONTELUKAST SODIUM 10 MG TAB PEG SCH (21:54)
--- NOTE | 2018-01-31 22:00 | NUR ---
PT IN LOW BED WITH SIDE RAILS X2, SHE IS AOX1, APHASIC AND WITHDRAWS TO PAIN. GT POSITIVE FOR PLACEMENT AND BS HEARD ALL 4 QUADS. PT GIVEN ALL 2100 MEDS EXCEPT LOPRESSOR DUE TO LOW B/P (96/43). PT TURNED AND REPOSITIONED AND SACRAL DRESSING INTACT WITH A SMALL AMOUNT OF DRAINAGE NOTED. PT ALSO GIVEN K-RIDER PIGGYBACK AT 50 MLS/HR. N/S RUNNING AT 60MLS/HR.
[2018-01-31] MEDS: KCL 20 MEQ/WATER INJ PREMIX 200 ML IV SCH (22:31)
--- NOTE | 2018-01-31 23:30 | NUR ---
PT IN LOW WOUND BED V/S FOLLOWS T 97 P 78 R 18 B/P 113/50 02 97% ON R/A.
[2018-02-01] VITALS (7 sets, daily range): BP systolic 91–121; BP diastolic 39–62
--- NOTE | 2018-02-01 01:00 | NUR ---
PT REMAINS ON WOUND BED AND PT IS TURNED Q 2HRS PER PROTOCOL. PT VOIDED A LARGE AMOUNT X1, PT WAS TURNED, CHANGED AND REPOSITIONED. PT WOUND CARE EVALUATED AREA CLEANED WITH NORMAL SALINE AND NEW DRESSING APPLIED. NO S/S OF PAIN OR DISTRESS NOTED. IV SITE INTACT AND RUNNING N/S ORDERED.
--- NOTE | 2018-02-01 04:00 | NUR ---
OBTAINED URINE FOR UA URINE THICK AND CLOUDY A SMALL AMOUNT OBTAINED AND SENT TO LAB FOR PROCESSING. PT TURNED AND REPOSITIONED, MOUTH CARE PROVIDED. IV SITE INTACT N/S RUNNING AT 60. ED LOW AND ALL FALLS AND SEIZURE PRECAUTIONS IN PLACE. HOB UP 35%, NO S/S OF PAIN OR DISTRESS NOTED.
--- NOTE | 2018-02-01 05:28 | NUR ---
LAB DRAWS DONE AT BEDSIDE.
[2018-02-01] MEDS: NACL 0.9% 1,000 ML IV SCH (05:42)
[2018-02-01] MEDS: LEVOTHYROXINE 0.025 MG TAB PO SCH (05:43)
[2018-02-01 06:48] LABS: BASOPHILS % (AUTO) 0.4 % (0.0-2.0); EOSINOPHILS # (AUTO) 0.1 K/uL (0-0.4); EOSINOPHILS % (AUTO) 1.1 % (0.0-4.0); HEMATOCRIT 29.7 % (36-48); HEMOGLOBIN 9.6 g/dL (12.0-16.0); LYMPHOCYTES # (AUTO) 2.2 K/uL (2.5-16.5); LYMPHOCYTES % (AUTO) 23.3 % (20.5-51.1); MEAN CORPUSCULAR HEMOGLOBIN 28 pg (27-31); MEAN CORPUSCULAR HGB CONC 32 g/dL (33-37); MEAN CORPUSCULAR VOLUME 86.9 fL (80-94); MONOCYTES # (AUTO) 0.5 K/uL (0.8-1.0); MONOCYTES % (AUTO) 5.6 % (1.7-9.3); NEUTROPHILS # (AUTO) 6.5 K/uL (1.8-7.7); NEUTROPHILS % (AUTO) 69.6 % (42.2-75.2); PLATELET COUNT (AUTO) 235 K/uL (140-450); RED BLOOD CELL COUNT(AUTO) 3.42 MIL/uL (4.20-5.40); RED CELL DISTRIBUTION WIDTH 16.3 % (11.6-13.7); WHITE BLOOD COUNT (AUTO) 9.3 K/uL (4.8-10.8)
[2018-02-01 07:01] LABS: ANION GAP 4.9 (8-16); CARBON DIOXIDE 37.8 mmol/L (21-32); CREATININE 0.7 mg/dL (0.6-1.3)
[2018-02-01 07:06] LABS: APPEARANCE,URINE SL CLOUDY (CLEAR); BILIRUBIN,URINE NEGATIVE (NEGATIVE); BLOOD, URINE NEGATIVE (NEGATIVE); COLOR,URINE YELLOW (YELLOW); LEUKOCYTE ESTERASE ,URINE 2+ (NEGATIVE); NITRITE, URINE NEGATIVE (NEGATIVE); UGLUCOSE NEGATIVE (NEGATIVE)
[2018-02-01 07:16] LABS: RBC,URINE 0-5 (RARE) /HPF (0-5)
[2018-02-01 07:24] LABS: POTASSIUM 2.7 mmol/L (3.5-5.1)
--- NOTE | 2018-02-01 07:25 | NUR ---
RECEIVED PT REPORT FROM CANE FLUME CHUTE OPERATOR RN AT BEDSIDE. PT IS AWAKE, CONFUSED, NON VERBAL. HX OF MENTALLY CHALLENGED. NO SOB NOTED ON ROOM AIR. IV TO LT HAND PATENT AND INTACT, ASYMPTOMATIC. LUNG SOUNDS CLEAR. ABDOMEN SOFT, BOWEL SOUNDS PRESENT. PT CONTRACTED TO BUE AND BLE. WOUND NOTED ON LEFT FOOT AND SACRAL, RASH NOTED TO LEFT NECK. PT ON WOUND CARE BED. WILL REPOSITION PT EVERY 2 HRS. BED ALARM ON. BED IN LOWEST POSITION. WILL CONTINUE TO MONITOR PT.
[2018-02-01] MEDS: ALBUTEROL 0.083% 2.5 MG/3 ML NEBU INH SCH ×2 (07:33→19:29)
--- NOTE | 2018-02-01 07:36 | NUR ---
PAGED DR TOOTIE Sena FOR K 2.7
--- NOTE | 2018-02-01 07:43 | NUR ---
ORDERS RECIEVED FROM DR SOMMERS, 40MEQ K RIDER WITH LIDOCAINE, RECHECKED BMP 1 HR AFTER.
[2018-02-01 08:09] LABS: T4 (THYROXINE) 6.1 ug/dL (4.5-12.0)
[2018-02-01] MEDS: ASCORBIC ACID 500 MG TAB PEG SCH (08:35)
[2018-02-01] MEDS: DOCUSATE 100 MG/10 ML UDC GT SCH (08:35)
[2018-02-01] MEDS: SENNA 8.6 MG TAB GT SCH ×3 (08:35→16:50)
[2018-02-01] MEDS: TAMSULOSIN 0.4 MG CAP GT SCH (08:35)
[2018-02-01] MEDS: GLYCOPYRROLATE 1 MG TAB PEG SCH ×2 (08:36→20:41)
[2018-02-01] MEDS: LORATADINE 10 MG TAB PEG SCH (08:36)
[2018-02-01] MEDS: METOPROLOL 25 MG TAB PO SCH ×2 (08:37→21:00)
[2018-02-01] MEDS: amLODIPine 5 MG TAB PO SCH (08:37)
[2018-02-01] MEDS: FLUTICASONE NASAL 50 MCG/ACTUATION 16 GM BTL NS SCH ×2 (08:38→20:42)
[2018-02-01] MEDS: TRIAMCINOLONE 0.025% CRM 15 GM TUBE TP SCH ×2 (08:38→20:43)
[2018-02-01] MEDS: Z-GUARD PASTE TP SCH (08:39)
[2018-02-01] MEDS ORDERED: POTASSIUM CHLORIDE 40 MEQ, LIDOCAINE MPF 1% - 5 mL VIAL 25 MG in NACL 0.9% 250 ML IV SCH (09:00)
[2018-02-01] MEDS: MULTIVITAMIN/MINERALS 15 ML UDBTL GT SCH (09:03)
[2018-02-01] MEDS: METOCLOPRAMIDE 10 MG/10 ML SYRP UDC GT SCH ×3 (09:03→16:50)
--- NOTE | 2018-02-01 11:00 | NUR ---
PT HAS BEEN SEEN BY DR GREENE.
[2018-02-01] MEDS ORDERED: POTASSIUM CHLORIDE 20% 40 MEQ/15 ML UDC GT SCH (11:06)
--- NOTE | 2018-02-01 11:25 | NUR ---
CALLED ROSALIE FROM [facility] FOR CONSENT. MESSAGE LEFT FOR HER. PHONE # [phone]
--- NOTE | 2018-02-01 12:00 | NUR ---
GREENISH BROWN BMX1, PT HAS BEEN CLEANED. Z GUARD APPLIED TO SACRAL, NEW OPTIFOAM APPLIED.
--- NOTE | 2018-02-01 13:00 | NUR ---
G TUBE FEEDING STARTED AT 10ML/HR. JEVITY 1.2, H2O FLUSH 50ML/6HR.
[2018-02-01] MEDS: LORazepam 2 MG/ML VIAL IM/IVP PRN (14:14)
[2018-02-01 15:24] LABS: ANION GAP 3.1 (8-16); CARBON DIOXIDE 35.4 mmol/L (21-32); CREATININE 0.8 mg/dL (0.6-1.3); POTASSIUM 4.5 mmol/L (3.5-5.1)
--- NOTE | 2018-02-01 16:40 | NUR ---
SPOKE WITH DR SOMMERS, REPORTED NA 149, ORDERS HAS BEEN PUT IN. DR SOMMERS OK TO DOWNGRADE PT TO MED SURG
[2018-02-01] MEDS: DEXT 5% / NACL 0.45% 1,000 ML IV SCH (18:15)
--- NOTE | 2018-02-01 19:15 | NUR ---
ENDORSED PT TO HEAD WELL PULLER RN. PT IN STABLE CONDITION.
--- NOTE | 2018-02-01 19:16 | NUR ---
RECEIVED REPORT FORM DAY SHIFT NURSE. PT IN BED, SLEEPING. NO S/S OF PAIN OR SOB. ON ROOM AIR. IV TO LEFT FA #24G, PATENT AND INTACT. CONTRACTED BUE AND BLE. PT HAS WOUND ON LEFT FOOT AND SACRAL AREA, RASH ON LEFT NECK. G-TUBE IN PLACE, FEEDING INCREASED TO 20 ML/HR. ASPIRATION AND FALL PRECAUTION IN PLACE.
--- NOTE | 2018-02-01 19:52 | NUR ---
CALLED ROSALIE BROOKS OF [facility] FOR G-J TUBE AND EGD CONSENT, NO ANSWER. LEFT A VOICE MSG.
--- NOTE | 2018-02-01 20:30 | NUR ---
PAGED DR. Jaida SOMMERS RE: ORDER OF K RIDER 40 MEQ DUE AT 2100. PT'S K LEVEL 4.5. PER , HOLD K-RIDER FOR AMAYA.
[2018-02-01] MEDS: MONTELUKAST SODIUM 10 MG TAB PEG SCH (20:42)
--- NOTE | 2018-02-01 20:45 | NUR ---
CHECKED G-TUBE RESIDUAL 20 ML. PT TOLERATING FEEDING WELL. ASPIRATION PRECAUTION IN PLACE.
--- NOTE | 2018-02-01 20:50 | NUR ---
BLOOD PRESSURE CHECKED 91/38, HR 75. HELD BP MED LOPRESSOR [address] Jaida SOMMERS.
--- NOTE | 2018-02-01 21:00 | NUR ---
RECEIVED A CALL FROM DR. Jaida SOMMERS. MD ORDERED NS BOLUS 500 ML THEN INCREASE RATE OF CURRENT IV FLUIDS D5 1/2 NS FROM 60 ML/HR TO 100 ML/HR. MADE AWARE OF BP MED WAS HELD. MADE AWARE ALSO THAT I COULDN'T GET HOLD OF ROSALIE FROM [facility] FOR THE CONSENT OF THE PROCEDURE FOR TOMORROW.
[2018-02-01] MEDS ORDERED: NACL 0.9% 500 ML IV SCH (21:20)
[2018-02-01] MEDS: KCL 20 MEQ/WATER INJ PREMIX 200 ML IV SCH (22:18)
--- NOTE | 2018-02-01 23:00 | NUR ---
RECHECKED VS, BP 104/56, HR 82. NO S/S OF PAIN OR RESP DISTRESS. PT TOLERATING FEEDING WELL.
[2018-02-02] VITALS: BP 106/56
--- NOTE | 2018-02-02 | NUR ---
PT RESTING IN BED WITH EYES CLOSED. NO S/S OF RESP DISTRESS. BP CHECKED 106/56, HR 90. FEEDING TURNED OFF.
--- NOTE | 2018-02-02 02:05 | NUR ---
PT WAS CLEANED AND CHANGED. TURNED AND REPOSITIONED Q2H. PT KEPT DRY AND COMFORTABLE. FALL AND SEIZURE PRECAUTION IN PLACE.
--- NOTE | 2018-02-02 04:30 | NUR ---
IV TO LEFT FA INFILTRATED. REMOVED CANNULA, TIP INTACT. INSERTED IV LINE TO RIGHT FA #24G. GOOD FLUSH AND BLOOD RETURN. PT TOLERATED PROCEDURE WELL.
[2018-02-02] MEDS: DEXT 5% / NACL 0.45% 1,000 ML IV SCH ×2 (06:39→15:49)
[2018-02-02] MEDS: LEVOTHYROXINE 0.025 MG TAB PO SCH (06:40)
--- NOTE | 2018-02-02 07:10 | NUR ---
ENDORSED PT TO DAY SHIFT NURSE. PT IN STABLE CONDITION.
--- NOTE | 2018-02-02 07:12 | NUR ---
RECEIVED REPORT FROM AMARILYS RN. PT RESTING IN BED. APHASIC. IV SITE PATENT AND INTACT. DRESSING TO FOOT AND SACRAL AREA DRY AND INTACT. G-TUBE CLAMPED AT THIS TIME. CALL LIGHT WITHIN REACH. SAFETY MEASURES ENSURED. WILL CONTINUE TO MONITOR
[2018-02-02] MEDS: ALBUTEROL 0.083% 2.5 MG/3 ML NEBU INH SCH ×2 (07:40→19:07)
[2018-02-02 07:48] LABS: BASOPHILS % (AUTO) 0.2 % (0.0-2.0); EOSINOPHILS % (AUTO) 0.4 % (0.0-4.0); HEMOGLOBIN 8.1 g/dL (12.0-16.0); LYMPHOCYTES # (AUTO) 1.7 K/uL (2.5-16.5); MEAN CORPUSCULAR HEMOGLOBIN 28 pg (27-31); MEAN CORPUSCULAR HGB CONC 32 g/dL (33-37); MEAN CORPUSCULAR VOLUME 87.8 fL (80-94); MONOCYTES # (AUTO) 0.5 K/uL (0.8-1.0); MONOCYTES % (AUTO) 6.3 % (1.7-9.3); NEUTROPHILS % (AUTO) 72.1 % (42.2-75.2); PLATELET COUNT (AUTO) 207 K/uL (140-450); RED BLOOD CELL COUNT(AUTO) 2.85 MIL/uL (4.20-5.40); RED CELL DISTRIBUTION WIDTH 16.5 % (11.6-13.7); WHITE BLOOD COUNT (AUTO) 8.3 K/uL (4.8-10.8)
[2018-02-02 07:54] LABS: ANION GAP 7.8 (8-16); CREATININE 0.8 mg/dL (0.6-1.3); POTASSIUM 3.8 mmol/L (3.5-5.1)
[2018-02-02 08:00] VITALS: BP 97/41
[2018-02-02] MEDS: METOCLOPRAMIDE 10 MG/10 ML SYRP UDC GT SCH ×3 (08:47→17:10)
[2018-02-02] MEDS: TAMSULOSIN 0.4 MG CAP GT SCH (08:49)
[2018-02-02] MEDS: POTASSIUM CHLORIDE 20% 40 MEQ/15 ML UDC GT SCH (08:50)
[2018-02-02] MEDS: MULTIVITAMIN/MINERALS 15 ML UDBTL GT SCH (08:52)
[2018-02-02] MEDS: SENNA 8.6 MG TAB GT SCH ×3 (08:52→17:10)
[2018-02-02] MEDS: FLUTICASONE NASAL 50 MCG/ACTUATION 16 GM BTL NS SCH ×2 (08:53→21:08)
[2018-02-02] MEDS: GLYCOPYRROLATE 1 MG TAB PEG SCH ×2 (08:58→20:57)
[2018-02-02] MEDS: ASCORBIC ACID 500 MG TAB PEG SCH (08:58)
--- NOTE | 2018-02-02 08:59 | NUR ---
AM MEDS GIVEN AT THIS TIME. NO S/S OF ACUTE DISTRESS. RESIDUAL 5ML. CALL LIGHT WITHIN REACH. SAFETY MEASURES ENSURED. WILL CONTINUE TO MONITOR.
[2018-02-02] MEDS: amLODIPine 5 MG TAB PO SCH (09:00)
[2018-02-02] MEDS: TRIAMCINOLONE 0.025% CRM 15 GM TUBE TP SCH ×2 (09:00→21:00)
[2018-02-02] MEDS: METOPROLOL 25 MG TAB PO SCH ×2 (09:00→21:00)
[2018-02-02] MEDS: Z-GUARD PASTE TP SCH (09:29)
--- NOTE | 2018-02-02 09:47 | NUR ---
LEFT MESSAGE FOR ROSALIE BONILLA CALL BACK. Addendum: 02/02/18 at 1509 by Landon Hwang RN [facility] [phone].
--- NOTE | 2018-02-02 10:58 | NUR ---
PT RESTING IN BED. NO S/S OF ACUTE DISTRESS. FLACC-0. PT TURNED.
--- NOTE | 2018-02-02 11:08 | NUR ---
CALLED AND LEFT MESSAGE FOR ROSALIE REGARDING CONSENT
[2018-02-02] MEDS: MIDAZOLAM 2 MG/2 ML VIAL IVP ONE ×2 (12:40→15:49)
[2018-02-02] MEDS: fentaNYL 0.05 MG/ML VIAL IVP ONE ×2 (12:41→15:49)
--- NOTE | 2018-02-02 13:07 | NUR ---
PT RESTING IN BED. NO S/S OF ACUTE DISTRESS. FLACC-0. CALL LIGHT WITHIN REACH. SAFETY MEASURES ENSURED. WILL CONTINUE TO MONITOR.
[2018-02-02] MEDS ORDERED: fentaNYL 0.05 MG/ML VIAL ONE (14:09)
[2018-02-02] MEDS ORDERED: MIDAZOLAM 2 MG/2 ML VIAL ONE (14:10)
--- NOTE | 2018-02-02 14:10 | NUR ---
PT TAKEN OFF UNIT TO OR
--- NOTE | 2018-02-02 15:17 | NUR ---
CALLED SONIA FROM [facility] TO CONFIRM IF THIS PATIENT WAS ON HOSPICE. SHE SAID THAT WHEN PATIENT IS DISCHARGED TO CALL HER AND SHE WOULD ARRANGE TRANSPORT BACK TO THE [facility] . SONIA SAID THAT THE PATIENT IS OFF HOSPICE ONCE SHE IS ADMITTED TO THE HOSPITAL. SONIA PHONE [phone].
[2018-02-02 15:30] VITALS: BP 99/54
--- NOTE | 2018-02-02 15:30 | NUR ---
PT BACK FROM SURGERY. PT RESTING IN BED. NO S/S OF ACUTE DISTRESS. FLACC-0. IV SITE PATENT AND INTACT. CALL LIGHT WITHIN REACH. SAFETY MEASURES ENSURED. WILL CONTINUE TO MONITOR.
[2018-02-02 15:45] VITALS: BP 92/51
--- NOTE | 2018-02-02 17:12 | NUR ---
FEEDING RESTARTED AT 10 ML/HR. WILL REEVALUATE AND INCREASE.
--- NOTE | 2018-02-02 19:00 | NUR ---
SPOKE TO DR. SOMMERS REGARDING DISCHARGING THE PATIENT BACK TO HOSPITAL. PER PT OKAY TO GO BACK TO HOSPICE TOMORROW IF PT TOLERATES FEEDING.
--- NOTE | 2018-02-02 19:20 | NUR ---
ENDORSED PLAN OF CARE TO NIGHT RN. PT STABLE
--- NOTE | 2018-02-02 19:20 | NUR ---
RECEIVED REPORT FROM KASSY PANG DAYSHIFT NURSE FOR CONTINUITY OF CARE, PT IN STABLE CONDITION.
--- NOTE | 2018-02-02 20:00 | NUR ---
PT TURNED AND CHANGED AND REPOSITIONED BM NOTED X1
[2018-02-02] MEDS: MONTELUKAST SODIUM 10 MG TAB PEG SCH (20:58)
--- NOTE | 2018-02-02 21:30 | NUR ---
PT IN LOW BED WITH FALLS, SEIZURE AND ASPIRATION PRECAUTIONS IN PLACE. HOB UP 35%. V/S FOLLOWS T 97.3 P 95 R 18 B/P 112/50 02 99% WITH 2L VIA N/C. IV SITE IN R F/A 24G INTACT WITH NO S/S OF INFILTRATION NOTED. PT RECEIVING D5 AND 1/2 NS AT 100MLS/HR AND TUBE FEEDING OF JEVITY CURRENTLY RUNNING AT 20MLS/HR WITH NO RESIDUAL NOTED. PT GIVEN PRN NORCO FOR RESTLESSNESS AND FACIAL GRIMACING, POSITIVE EFFECT NOTED.
[2018-02-02] MEDS: KCL 20 MEQ/WATER INJ PREMIX 200 ML IV SCH (22:30)
--- NOTE | 2018-02-02 22:30 | NUR ---
DR SOMMERS,A PAGED REGARDING POTASSIUM IV ORDER( K-RIDER) , THE ORDER CONTINUES TO REGENERATE ON THE COMPUTER AND PT ALREADY HAS ORDER FOR POTASSUIM 40 MEQ DAILY VIA J-TUBE WHICH STARTED TODAY. PT POTASSIUM LEVEL IS 3.8. AWAITING RESPONSE FROM DR. SOMMERS.
[2018-02-03] VITALS: BP 87/34
[2018-02-03] MEDS: DEXT 5% / NACL 0.45% 1,000 ML IV SCH ×3 (00:36→13:11)
--- NOTE | 2018-02-03 01:00 | NUR ---
PT IN LOW BED WITH ALL PRECAUTIONS IN PLACE FOR FALLS, ASPIRATION, AND SEIZURE PRECAUTIONS. NO RESIDUAL NOTED JEVITY BUMPED UP TO 30MLS/HR. V/S FOLLOWS T 97.9 P 80 R 18 B/P 87/34 02 100 % WITH 2L VIA N/C.
[2018-02-03] MEDS: LEVOTHYROXINE 0.025 MG TAB PO SCH (06:18)
[2018-02-03 06:35] LABS: BASOPHILS % (AUTO) 0.3 % (0.0-2.0); EOSINOPHILS # (AUTO) 0.2 K/uL (0-0.4); EOSINOPHILS % (AUTO) 3.6 % (0.0-4.0); HEMATOCRIT 23.7 % (36-48); HEMOGLOBIN 7.5 g/dL (12.0-16.0); LYMPHOCYTES # (AUTO) 1.2 K/uL (2.5-16.5); LYMPHOCYTES % (AUTO) 20.4 % (20.5-51.1); MEAN CORPUSCULAR HEMOGLOBIN 28 pg (27-31); MEAN CORPUSCULAR HGB CONC 32 g/dL (33-37); MEAN CORPUSCULAR VOLUME 88.3 fL (80-94); MONOCYTES # (AUTO) 0.3 K/uL (0.8-1.0); MONOCYTES % (AUTO) 5.7 % (1.7-9.3); NEUTROPHILS # (AUTO) 4.2 K/uL (1.8-7.7); PLATELET COUNT (AUTO) 187 K/uL (140-450); RED BLOOD CELL COUNT(AUTO) 2.69 MIL/uL (4.20-5.40); RED CELL DISTRIBUTION WIDTH 16.7 % (11.6-13.7)
[2018-02-03 06:47] LABS: CREATININE 0.6 mg/dL (0.6-1.3)
[2018-02-03 06:55] LABS: ANION GAP 6.7 (8-16); CARBON DIOXIDE 27.6 mmol/L (21-32); POTASSIUM 4.3 mmol/L (3.5-5.1)
--- NOTE | 2018-02-03 07:20 | NUR ---
ENDORSED CARE TO SHYANNE RN DAYSHIFT NURSE AT BEDSIDE FOR CONTINUITY OF CARE. PT IN STABLE CONDITION.
--- NOTE | 2018-02-03 07:30 | NUR ---
RECEIVED PT REPORT FROM ROUGHER MACHINE OPERATOR RN AT BEDSIDE. PT IS SLEEPING, AROUSED BY LIGHT SHAKING, APHASIC. HX OF MENTALLY CHALLENGED. NO SOB NOTED ON ROOM AIR. IV TO RIGHT FA, 24G, RUNNING NS AT 10ML/HR, INFILTRATED, RIGHT ARM AROUND IV SITE IS PUFFY. LUNG SOUNDS CLEAR. ABDOMEN SOFT, BOWEL SOUNDS PRESENT. TUBE FEEDING RUNNING AT 40ML/HR, JEVITY 1.2. WOUND NOTED ON LEFT FOOT AND SACRAL, RASH NOTED TO LEFT NECK. PT ON WOUND CARE BED. WILL REPOSITION PT EVERY 2 HRS. BED ALARM ON. BED IN LOWEST POSITION. WILL CONTINUE TO MONITOR PT.
[2018-02-03] MEDS: ALBUTEROL 0.083% 2.5 MG/3 ML NEBU INH SCH ×2 (07:51→19:30)
[2018-02-03 08:00] VITALS: BP 136/64
[2018-02-03] MEDS: METOCLOPRAMIDE 10 MG/10 ML SYRP UDC GT SCH ×3 (08:38→17:55)
[2018-02-03] MEDS: MULTIVITAMIN/MINERALS 15 ML UDBTL GT SCH (08:38)
[2018-02-03] MEDS: POTASSIUM CHLORIDE 20% 40 MEQ/15 ML UDC GT SCH (08:38)
[2018-02-03] MEDS: SENNA 8.6 MG TAB GT SCH ×3 (08:39→17:55)
[2018-02-03] MEDS: GLYCOPYRROLATE 1 MG TAB PEG SCH ×2 (08:39→21:00)
[2018-02-03] MEDS: ASCORBIC ACID 500 MG TAB PEG SCH (08:39)
[2018-02-03] MEDS: METOPROLOL 25 MG TAB PO SCH ×2 (08:40→21:00)
[2018-02-03] MEDS: TAMSULOSIN 0.4 MG CAP GT SCH (08:40)
[2018-02-03] MEDS: amLODIPine 5 MG TAB PO SCH (08:42)
[2018-02-03] MEDS: Z-GUARD PASTE TP SCH (08:42)
[2018-02-03] MEDS: TRIAMCINOLONE 0.025% CRM 15 GM TUBE TP SCH ×2 (08:44→21:00)
[2018-02-03] MEDS: FLUTICASONE NASAL 50 MCG/ACTUATION 16 GM BTL NS SCH ×2 (08:44→21:00)
--- NOTE | 2018-02-03 12:15 | NUR ---
ADJUSTED FEEDING TO 50ML/HR
[2018-02-03] MEDS: LORazepam 2 MG/ML VIAL IM/IVP PRN (14:56)
--- NOTE | 2018-02-03 15:31 | NUR ---
02/03/18 RD FOLLOW UP COMPLETED PLEASE REFER TO NUTRITION ASSESSMENT UNDER CARE ACTIVITY FOR ESTIMATED NUTRITIONAL NEEDS. 1. RECOMMEND ADVANCING TUBE FEEDING RATE TO 60 ML/HR -THIS WILL PROVIDE 1440 ML OF VOLUME, 1728 KCAL, AND 80 GM OF PROTEIN, WHICH MEETS 100% OF ESTIMATED KCAL AND PROTEIN NEEDS 2. PROVIDED FOOD AND DRUG INTERACTION EDUCATION 3. RD TO FOLLOW-UP 2-3 DAYS, HIGH RISK SABI ORTIZ RD
[2018-02-03 16:00] VITALS: BP 106/40
--- NOTE | 2018-02-03 16:11 | NUR ---
CALLED THE FACILITY SHAHEED ESTES SPOKE WITH RUBY STEIN , SHE CHECKED THAT PATIENT RECEIVED FLU VACCINE, THE LAST FLU VACCINE IS FEB 2017 AND NO RECORDS FOR PNEUMONIA VACCINE NOTIFIED DR TOOTIE NANCE AND PER DR SOMMERS ORDERED FLU AND PNEUMONIA VACCINE.
--- NOTE | 2018-02-03 16:32 | NUR ---
PAGED DR TOOTIE Diaz, REGARDING OCCULT BLOOD RESULT
[2018-02-03] MEDS ORDERED: PNEUMOCOCCAL VACCINE 23 MCG/0.5 ML VIAL IMVAC PRN (16:40)
[2018-02-03] MEDS ORDERED: INFLUENZA VIRUS VACCINE QUAD 0.5 ML SYR IMVAC PRN (16:40)
--- NOTE | 2018-02-03 16:44 | NUR ---
CALLED DR GREENE, [phone], SPOKE WITH THE SANE RN WHO TOOK THE MESSAGE HGB 7.5, OCCULT BLOOD POSITIVE.
--- NOTE | 2018-02-03 17:55 | NUR ---
CALLED [facility] FOR TRANSPORTATION ARRANGEMENT. NOTIFIED HER ABOUT DISCHARGE ORDER.
[2018-02-03] MEDS ORDERED: FERROUS SULFATE 300 MG/5 ML UDC GT SCH (18:00)
--- NOTE | 2018-02-03 18:00 | NUR ---
ADJUSTED FEEDING TO 60ML/HR.
--- NOTE | 2018-02-03 19:00 | NUR ---
PIC TAKEN FOR THE WOUNDS. CHANGED PT TO [place]. APPLIED Z GUARD TO SACRAL. CHANGED SACRAL DRESSING.
--- NOTE | 2018-02-03 19:30 | NUR ---
RECEIVED ENDORSEMENT FORM SHYANNE RN DAYSHIFT NURSE AY BEDSIDE FOR CONTINUITY OF CARE, PT IN STABLE CONDITION.
--- NOTE | 2018-02-03 19:30 | NUR ---
ENDORSED PT TO PERSONNEL SCHEDULER NURSE. PT IN STABLE CONDITION.
--- NOTE | 2018-02-03 20:00 | NUR ---
PT TURNED, CHANGED AND PREPARED TO BE DISCHARGED. ALL PRECAUTIONS IN PLACE. V/S FOLLOWS T 98.9 P 84 R 20 B/P 116/78 02 92% ON R/A. JEVITY RUNNING ORDERED, IV FLUIDS RUNNING D5 AND 1/2 N/S RUNNING AT 100MLS/HR.
[2018-02-03] MEDS: MONTELUKAST SODIUM 10 MG TAB PEG SCH (21:00)
--- NOTE | 2018-02-03 21:30 | NUR ---
[employer] [facility] [employer] HERE TO [employer] PT WHO IS GOING TO [facility]. PT HAD BM AND WAS CHANGED BEFORE DISCHARGE. REPORT GIVEN TO TRANSPORT STAFF. ALL DUE MEDS WERE GIVEN TO PT VIA JT. NO RESIDUAL NOTED, IV SITE ON LEFT SHOULDER REMOVED WELL ALL NAME BANDS. DISCHARGE PAPERS AND BELONGINGS WERE GIVEN TO TRANSPORT STAFF. PT IN STABLE CONDITION.
[2018-02-04] MEDS ORDERED: LANSOPRAZOLE 30 MG CAPDR GT SCH (07:30)
[2018-02-04] MEDS ORDERED: METOCLOPRAMIDE 10 MG TAB PO SCH (07:30)
[2018-02-04] MEDS ORDERED: FERROUS SULFATE 300 MG/5 ML UDC GT SCH (08:00)
[2018-02-04] MEDS ORDERED: LACTULOSE 20 GM/30 ML UDC PO SCH (09:00)
== END 2018-02-03 21:35 | disposition hospice, home (50) | DRG 252 ==
LOC: MED 16:40 → MTU 20:37
PROVIDERS: ADMIT Preventive Medicine Preventive Medicine/Occupational Environmental Medicine; ATTEND Preventive Medicine Preventive Medicine/Occupational Environmental Medicine
PROC: 0DP6XUZ Removal of Feeding Device from Stomach, External Approach (ICD-10-PCS; 2018-02-02)
PROC: 0DHA3UZ Insertion of Feeding Device into Jejunum, Percutaneous Approach (ICD-10-PCS; principal; 2018-02-02 18:45)
PROC: 3E0234Z Introduction of Serum, Toxoid and Vaccine into Muscle, Percutaneous Approach (ICD-10-PCS; 2018-02-03)
DX: K94.23 Gastrostomy malfunction (principal); E87.0 Hyperosmolality and hypernatremia; E44.0 Moderate protein-calorie malnutrition; E83.52 Hypercalcemia; K22.10 Ulcer of esophagus without bleeding; E83.41 Hypermagnesemia; K31.84 Gastroparesis; E87.6 Hypokalemia; I12.9 Hypertensive chronic kidney disease with stage 1 through stage 4 chronic kidney disease, or unspecified chronic kidney disease; N18.9 Chronic kidney disease, unspecified; N32.81 Overactive bladder; Y83.3 Surgical operation with formation of external stoma as the cause of abnormal reaction of the patient, or of later complication, without mention of misadventure at the time of the procedure; E03.9 Hypothyroidism, unspecified; G80.9 Cerebral palsy, unspecified; D64.9 Anemia, unspecified; J45.909 Unspecified asthma, uncomplicated; K59.00 Constipation, unspecified; E78.5 Hyperlipidemia, unspecified; K21.9 Gastro-esophageal reflux disease without esophagitis; R73.9 Hyperglycemia, unspecified; R53.81 Other malaise; Z23 Encounter for immunization; Z79.899 Other long term (current) drug therapy
CPT/HCPCS: 36415; 71045; 74241; 80048; 80053; 81001; 82140; 82150; 82272; 82550; 82553; 83036; 83615; 83690; 83735; 83880; 84100; 84134; 84436; 84443; 84484; 85025; 85610; 85730; 87081; 87086; 90658; 90732; 93005; 94640; 99285; C1758; J2001; J2060; J2250; J3010; J3480; J7030; J7613; J8597; Q0092; Q9967